=== PATIENT | male | born 1965 | race Two or more races ===

== ENCOUNTER 2023-04-07 15:52 | Inpatient (IN) | payer OTHER ==
[~2023-04-07] VITALS: Ht 165.1 cm; Wt 100.7 kg
[~2023-04-07 15:52] MED LIST: CALAZIME TP; CIPR500T5 GT; [UNRECOGNIZED DRUG - OTHER] TP
[2023-04-07 16:28] LABS: BASOPHILS # (AUTO) 0.1 K/uL (0.0-0.2); BASOPHILS % (AUTO) 0.4 % (0.0-2.0); EOSINOPHILS # (AUTO) 0.1 K/uL (0.0-0.7); EOSINOPHILS % (AUTO) 0.7 % (0.0-6.0); HEMATOCRIT 30 % (39-51); HEMOGLOBIN 9.2 g/dL (13.5-17.5); LYMPHOCYTES # (AUTO) 1.8 K/uL (0.8-4.8); LYMPHOCYTES % (AUTO) 11.7 % (20.0-44.0); MEAN CORPUSCULAR HEMOGLOBIN 21 PG (26.0-33.0); MEAN CORPUSCULAR HGB CONC 31 g/dl (31.0-36.0); MEAN CORPUSCULAR VOLUME 68 fL (80-96); MONOCYTES # (AUTO) 1.2 K/uL (0.1-1.30); MONOCYTES % (AUTO) 8.1 % (2.0-12.0); NEUTROPHILS # (AUTO) 11.9 K/uL (1.8-8.9); NEUTROPHILS % (AUTO) 79.1 % (43.0-81.0); PLATELET COUNT (AUTO) 659 K/uL (150-450); RED BLOOD CELL COUNT(AUTO) 4.36 MIL/uL (4.5-6.0); RED CELL DISTRIBUTION WIDTH 29.5 % (11.5-15.0); WHITE BLOOD COUNT (AUTO) 15.1 K/uL (4.3-11.0)
[2023-04-07] MEDS: PANTOPRAZOLE 80 MG in IV NS 0.9% 500 ML IV ONE (16:30)
[2023-04-07] MEDS: ACETAMINOPHEN 650 MG/SUPP.RECT RC ONE (16:30)
[2023-04-07] MEDS: VANCOMYCIN 1 GM in IV D5W 250 ML IV ONE (16:30)
[2023-04-07] MEDS: PANTOPRAZOLE 80 MG in IV NS 0.9% 100 ML IV ONE (16:30)
[2023-04-07 16:40] LABS: ALANINE AMINOTRANSFERASE 31 U/L (12-78); ALBUMIN 2.3 g/dL (3.4-5.0); ALKALINE PHOSPHATASE 105 U/L (46-116); ASPARTATE AMINOTRANSFERASE 24 U/L (15-37); BILIRUBIN,DIRECT 0.1 mg/dL (0.0-0.2); BILIRUBIN,TOTAL 0.5 mg/dL (0.2-1.0); CALCIUM, SERUM 8.9 mg/dL (8.5-10.1); CARBON DIOXIDE 27 mmol/L (21-32); CHLORIDE 102 mmol/L (98-107); CREATININE 1.3 mg/dL (0.6-1.3); GLUCOSE 282 mg/dL (74-106); POTASSIUM 3.5 mmol/L (3.5-5.1); SODIUM SERUM 139 mmol/L (136-145); TOTAL PROTEIN, SERUM 9.4 g/dL (6.4-8.2); UREA NITROGEN, BLOOD 26 mg/dL (7-18)
[2023-04-07 16:53] LABS: INR 1.14 (0.91-1.10); PARTIAL THROMBOPLASTIN TIME 28.1 SEC (24.3-34.3)
[2023-04-07] MEDS: IV NS 0.9% 1,000 ML BAG IV ONE (16:54)
[2023-04-07] MEDS: PIPERACILLIN /TAZOBACTAM 3.375 G in IV D5W 50 ML IV ONE (17:00)
[2023-04-07 17:12] LABS: ANISOCYTOSIS 1+; LYMPHOCYTES % (MANUAL) 16 % (16-48); MONOCYTES % (MANUAL) 4 % (0-11.0); NEUTROPHILS % (MANUAL) 80 (42-76); OVALOCYTES 1+; PLATELET ESTIMATE INCREASED; ROULEAUX 1+
[2023-04-07 17:30] LABS: LACTIC ACID 1.5 mmol/L (0.4-2.0)
[2023-04-07] MEDS ORDERED: ACETAMINOPHEN 650 MG/20.3 ML UDC ONE (17:58)
[2023-04-07] MEDS ORDERED: MAGNESIUM HYDROXIDE 30 ML UDC PO PRN (18:00)
[2023-04-07] MEDS ORDERED: ONDANSETRON HCL/PF 4 MG/2 ML VIAL IVP PRN (18:00)
[2023-04-07] MEDS ORDERED: MAG HYDROX/AL HYDROX/SIMETH 30 ML UDC PO PRN (18:00)
[2023-04-07] MEDS ORDERED: ACETAMINOPHEN 325 MG TABLET PO PRN (18:00)
[2023-04-07] MEDS ORDERED: Z GUARD REMEDY 4 OZ OINT TP PRN (18:00)
[2023-04-07] MEDS ORDERED: ACETAMINOPHEN 650 MG/20 ML UDC- SA PATIENTS-FEVER ONLY GT PRN (18:00)
[2023-04-07 20:40] VITALS: BP 111/84; TEMP 99.1; O2SAT 95
[2023-04-07] MEDS: PANTOPRAZOLE 40 MG VIAL IV SCH (21:00)
[2023-04-07] MEDS: CEFEPIME HCL 2 GM in IV D5W 100 ML IV SCH (22:14)
[2023-04-07 23:11] VITALS: BP 111/84; TEMP 99.1; O2SAT 95
[2023-04-08 00:01] VITALS: BP 132/65; TEMP 99; O2SAT 93
[2023-04-08] MEDS: IV NS 0.9% 1,000 ML IV PRN (03:35)
[2023-04-08] MEDS: VANCOMYCIN 750 MG in IV D5W 250 ML IV SCH (06:14)
[2023-04-08 07:00] VITALS: BP 112/84; TEMP 98.2; O2SAT 95
[2023-04-08 07:49] LABS: BILIRUBIN,DIRECT 0.1 mg/dL (0.0-0.2); CALCIUM, SERUM 8.6 mg/dL (8.5-10.1); MAGNESIUM 1.8 mg/dL (1.8-2.4); POTASSIUM 3.4 mmol/L (3.5-5.1); TOTAL PROTEIN, SERUM 8.5 g/dL (6.4-8.2)
[2023-04-08 08:01] LABS: BASOPHILS # (AUTO) 0.1 K/uL (0.0-0.2); BASOPHILS % (AUTO) 0.5 % (0.0-2.0); EOSINOPHILS # (AUTO) 0.2 K/uL (0.0-0.7); EOSINOPHILS % (AUTO) 1.1 % (0.0-6.0); HEMATOCRIT 27 % (39-51); HEMOGLOBIN 8.2 g/dL (13.5-17.5); LYMPHOCYTES # (AUTO) 1.9 K/uL (0.8-4.8); LYMPHOCYTES % (AUTO) 13.3 % (20.0-44.0); MEAN CORPUSCULAR HEMOGLOBIN 21 PG (26.0-33.0); MEAN CORPUSCULAR HGB CONC 31 g/dl (31.0-36.0); MEAN CORPUSCULAR VOLUME 69 fL (80-96); MONOCYTES # (AUTO) 1.2 K/uL (0.1-1.30); MONOCYTES % (AUTO) 8.1 % (2.0-12.0); NEUTROPHILS # (AUTO) 11.1 K/uL (1.8-8.9); PLATELET COUNT (AUTO) 559 K/uL (150-450); RED BLOOD CELL COUNT(AUTO) 3.87 MIL/uL (4.5-6.0); RED CELL DISTRIBUTION WIDTH 28.6 % (11.5-15.0); WHITE BLOOD COUNT (AUTO) 14.4 K/uL (4.3-11.0)
[2023-04-08 08:05] LABS: BILIRUBIN,TOTAL 0.5 mg/dL (0.2-1.0)
[2023-04-08] MEDS ORDERED: DEXTROSE 50%-WATER 50 ML DISP.SYRIN IV PRN (10:30)
[2023-04-08] MEDS: POTASSIUM CL. PREMIX PERIPHER. 50 ML IV SCH (11:33)
[2023-04-08] MEDS: BLOOD SUGAR DIAGNOSTIC 1 EACH STRIP VI SCH (11:57)
[2023-04-08 12:00] VITALS: BP 129/80; TEMP 98.6; O2SAT 94
[2023-04-08] MEDS: INSULIN REGULAR, HUMAN 100 UNIT/ML 3 ML VIAL SQ PRN (13:51)
[2023-04-08 16:00] VITALS: BP 121/94; TEMP 98.6; O2SAT 96
[2023-04-08] MEDS ORDERED: MAGN400O6 GT (18:03)
[2023-04-08] MEDS ORDERED: INSU100V39 SQ (18:03)
[2023-04-08] MEDS ORDERED: ACET-868 GT (18:03)
[2023-04-08] MEDS ORDERED: GLUCERNA CAL GT (18:03)
[2023-04-08] MEDS ORDERED: CRAN425C6 GT (18:03)
[2023-04-08] MEDS ORDERED: METO25TA6 GT (18:03)
[2023-04-08] MEDS ORDERED: TICA90TA GT (18:03)
[2023-04-08] MEDS ORDERED: Lansoprazole GT (18:03)
[2023-04-08] MEDS ORDERED: AMLO-213 GT (18:03)
[2023-04-08] MEDS ORDERED: ACET-2605 GT ×2 (18:03)
[2023-04-08] MEDS ORDERED: ZINC50TA69 GT (18:03)
[2023-04-08] MEDS ORDERED: CHLO473M5 PO (18:03)
[2023-04-08] MEDS ORDERED: MULT-213 GT (18:03)
[2023-04-08] MEDS ORDERED: CRAN3875 GT (18:03)
[2023-04-08] MEDS ORDERED: IPRA0.2S9 IH (18:03)
[2023-04-08] MEDS ORDERED: ALBU2.5V38 IH (18:03)
[2023-04-08] MEDS ORDERED: ASPI-1169 GT (18:03)
[2023-04-08] MEDS ORDERED: VITS42.53 TP ×2 (18:03)
[2023-04-08] MEDS ORDERED: ASCO-352 GT (18:03)
[2023-04-08] MEDS ORDERED: ALLO300T2 GT (18:03)
[2023-04-08] MEDS ORDERED: ATOR80TA GT (18:03)
[2023-04-08] MEDS ORDERED: ACET325T53 GT (18:03)
[2023-04-08] MEDS ORDERED: DOCU100T2 GT (18:03)
[2023-04-08] MEDS ORDERED: COLC0.6C3 GT (18:03)
[2023-04-08 20:00] VITALS: BP 137/99; TEMP 98.4; O2SAT 96
[2023-04-09 07:22] LABS: BASOPHILS # (AUTO) 0.1 K/uL (0.0-0.2); BASOPHILS % (AUTO) 0.6 % (0.0-2.0); EOSINOPHILS # (AUTO) 0.3 K/uL (0.0-0.7); EOSINOPHILS % (AUTO) 2.6 % (0.0-6.0); HEMATOCRIT 27 % (39-51); HEMOGLOBIN 8.2 g/dL (13.5-17.5); LYMPHOCYTES % (AUTO) 15.3 % (20.0-44.0); MEAN CORPUSCULAR HEMOGLOBIN 21 PG (26.0-33.0); MEAN CORPUSCULAR HGB CONC 30 g/dl (31.0-36.0); MEAN CORPUSCULAR VOLUME 69 fL (80-96); MONOCYTES % (AUTO) 7.6 % (2.0-12.0); NEUTROPHILS # (AUTO) 9.5 K/uL (1.8-8.9); NEUTROPHILS % (AUTO) 73.9 % (43.0-81.0); PLATELET COUNT (AUTO) 555 K/uL (150-450); RED BLOOD CELL COUNT(AUTO) 3.99 MIL/uL (4.5-6.0); RED CELL DISTRIBUTION WIDTH 28.9 % (11.5-15.0); WHITE BLOOD COUNT (AUTO) 12.9 K/uL (4.3-11.0)
[2023-04-09 07:26] LABS: CALCIUM, SERUM 8.5 mg/dL (8.5-10.1); PHOSPHORUS 3.3 mg/dL (2.5-4.9); POTASSIUM 3.1 mmol/L (3.5-5.1)
[2023-04-09 08:00] VITALS: BP 134/97; TEMP 99.1; O2SAT 98
[2023-04-09] MEDS ORDERED: POTASSIUM CL. PREMIX PERIPHER. 50 ML IV SCH (10:00)
[2023-04-09] MEDS: POTASSIUM CL. PREMIX PERIPHER. 50 ML IV SCH (10:38)
[2023-04-09] MEDS ORDERED: ANESTHESIA TRAY IN PYXIS 1 EA TRAY MC ONE (14:22)
[2023-04-09 16:00] VITALS: BP 134/94; TEMP 98.6; O2SAT 98
[2023-04-09 20:00] VITALS: BP 125/96; TEMP 99; O2SAT 96
[2023-04-09] MEDS: GLUCERNA 1.2 1,000 ML BOTTLE GT SCH (20:20)
[2023-04-09] MEDS: *INSULIN REGULAR(HUMULIN R)HUM 100 UNIT/ML VIAL SQ PRN (21:48)
[2023-04-09] MEDS: SENNOSIDES 8.6 MG TABLET GT SCH (23:15)
[2023-04-10 07:13] LABS: CALCIUM, SERUM 8.4 mg/dL (8.5-10.1); CREATININE 0.9 mg/dL (0.6-1.3); POTASSIUM 3.2 mmol/L (3.5-5.1)
[2023-04-10] MEDS: DOCUSATE SODIUM LIQ 100 MG/10 ML UDC GT SCH (09:28)
[2023-04-10] MEDS: POTASSIUM CHLORIDE 20 MEQ POWDER PACKET PO ONE (09:30)
[2023-04-10 09:54] VITALS: BP 127/83; TEMP 99.3; O2SAT 98
[2023-04-10 10:41] LABS: BASOPHILS # (AUTO) 0.1 K/uL (0.0-0.2); BASOPHILS % (AUTO) 0.6 % (0.0-2.0); EOSINOPHILS # (AUTO) 0.3 K/uL (0.0-0.7); EOSINOPHILS % (AUTO) 2.6 % (0.0-6.0); HEMATOCRIT 28 % (39-51); HEMOGLOBIN 8.5 g/dL (13.5-17.5); LYMPHOCYTES # (AUTO) 1.4 K/uL (0.8-4.8); LYMPHOCYTES % (AUTO) 11.5 % (20.0-44.0); MEAN CORPUSCULAR HEMOGLOBIN 21 PG (26.0-33.0); MEAN CORPUSCULAR HGB CONC 30 g/dl (31.0-36.0); MEAN CORPUSCULAR VOLUME 69 fL (80-96); MONOCYTES # (AUTO) 0.7 K/uL (0.1-1.30); MONOCYTES % (AUTO) 5.7 % (2.0-12.0); NEUTROPHILS # (AUTO) 9.8 K/uL (1.8-8.9); NEUTROPHILS % (AUTO) 79.6 % (43.0-81.0); PLATELET COUNT (AUTO) 516 K/uL (150-450); RED BLOOD CELL COUNT(AUTO) 4.12 MIL/uL (4.5-6.0); RED CELL DISTRIBUTION WIDTH 28.5 % (11.5-15.0); WHITE BLOOD COUNT (AUTO) 12.4 K/uL (4.3-11.0)
[2023-04-10 16:00] VITALS: BP 131/83; TEMP 101.7; O2SAT 96
[2023-04-10] MEDS: ACETAMINOPHEN 650 MG/20.3 ML UDC GT PRN (16:20)
[2023-04-10 17:25] VITALS: TEMP 100.4
[2023-04-10 19:41] LABS: APPEARANCE,URINE CLEAR (CLEAR); BILIRUBIN,URINE NEGATIVE (NEGATIVE); BLOOD, URINE NEGATIVE Ery/uL (NEGATIVE); COLOR,URINE YELLOW (YELLOW); KETONES,URINE TRACE mg/dL (NEGATIVE); LEUKOCYTE ESTERASE ,URINE NEGATIVE (NEGATIVE); NITRITE, URINE NEGATIVE (NEGATIVE); PH,URINE 5.5 (5.0-8.0); PROTEIN,URINE TRACE mg/dl (NEGATIVE); UGLUCOSE 1+ mg/dL (NEGATIVE); UROBILINOGEN,URINE 0.2 EU/dL (0.2)
[2023-04-10 20:00] VITALS: BP 117/77; TEMP 99.1; O2SAT 97
[2023-04-10 20:09] LABS: ADD URINE CULTURE YES; BACTERIA,URINE 2+ /HPF (None Seen); RBC,URINE 0-2 /HPF (0-2); WBC,URINE NONE SEEN /HPF (0-3)
[2023-04-10 20:10] LABS: CALCIUM OXALATE CRYSTALS,UR Few /HPF (None Seen); MUCUS,URINE Few /LPF (None Seen)
[2023-04-10] MEDS: PANTOPRAZOLE 40 MG/PACK PACK GT SCH (21:30)
[2023-04-10 21:55] VITALS: BP 117/77; TEMP 99.1; O2SAT 97
[2023-04-11 04:12] VITALS: BP 120/73; TEMP 98.6; O2SAT 98
[2023-04-11 07:00] VITALS: BP 153/99; TEMP 99; O2SAT 93
[2023-04-11 11:06] LABS: CALCIUM, SERUM 8.3 mg/dL (8.5-10.1); CREATININE 0.8 mg/dL (0.6-1.3); POTASSIUM 3.3 mmol/L (3.5-5.1)
[2023-04-11 11:23] LABS: BASOPHILS # (AUTO) 0.2 K/uL (0.0-0.2); BASOPHILS % (AUTO) 0.9 % (0.0-2.0); EOSINOPHILS # (AUTO) 0.3 K/uL (0.0-0.7); EOSINOPHILS % (AUTO) 1.7 % (0.0-6.0); HEMATOCRIT 27 % (39-51); HEMOGLOBIN 8.5 g/dL (13.5-17.5); LYMPHOCYTES # (AUTO) 1.8 K/uL (0.8-4.8); LYMPHOCYTES % (AUTO) 8.5 % (20.0-44.0); MEAN CORPUSCULAR HEMOGLOBIN 21 PG (26.0-33.0); MEAN CORPUSCULAR HGB CONC 31 g/dl (31.0-36.0); MEAN CORPUSCULAR VOLUME 68 fL (80-96); MONOCYTES # (AUTO) 1.1 K/uL (0.1-1.30); MONOCYTES % (AUTO) 5.2 % (2.0-12.0); NEUTROPHILS # (AUTO) 17.2 K/uL (1.8-8.9); NEUTROPHILS % (AUTO) 83.7 % (43.0-81.0); PLATELET COUNT (AUTO) 501 K/uL (150-450); RED BLOOD CELL COUNT(AUTO) 3.97 MIL/uL (4.5-6.0); RED CELL DISTRIBUTION WIDTH 29.1 % (11.5-15.0); WHITE BLOOD COUNT (AUTO) 20.6 K/uL (4.3-11.0)
[2023-04-11 16:00] VITALS: BP 144/81; TEMP 100.2; O2SAT 97
[2023-04-11] MEDS: METRONIDAZOLE 500MG/ NS 100ML 500 MG in PREMIX 1 EA IV SCH (18:25)
[2023-04-11 20:00] VITALS: BP 131/86; TEMP 98.4; O2SAT 97
[2023-04-12] VITALS (8 sets, daily range): BP systolic 80–165; BP diastolic 50–87; TEMP 99–100.4; O2SAT 94–98
[2023-04-12 06:57] LABS: CALCIUM, SERUM 8.3 mg/dL (8.5-10.1); CREATININE 0.8 mg/dL (0.6-1.3); POTASSIUM 3.1 mmol/L (3.5-5.1)
[2023-04-12 09:23] LABS: CALCIUM, SERUM 8.4 mg/dL (8.5-10.1); CREATININE 0.9 mg/dL (0.6-1.3)
[2023-04-12 09:24] LABS: BASOPHILS % (AUTO) 0.2 % (0.0-2.0); EOSINOPHILS % (AUTO) 0.3 % (0.0-6.0); HEMATOCRIT 30 % (39-51); HEMOGLOBIN 9.1 g/dL (13.5-17.5); LYMPHOCYTES # (AUTO) 1.4 K/uL (0.8-4.8); MEAN CORPUSCULAR HEMOGLOBIN 21 PG (26.0-33.0); MEAN CORPUSCULAR HGB CONC 31 g/dl (31.0-36.0); MEAN CORPUSCULAR VOLUME 68 fL (80-96); MONOCYTES # (AUTO) 1.3 K/uL (0.1-1.30); MONOCYTES % (AUTO) 6.6 % (2.0-12.0); NEUTROPHILS % (AUTO) 85.9 % (43.0-81.0); PLATELET COUNT (AUTO) 484 K/uL (150-450); RED BLOOD CELL COUNT(AUTO) 4.35 MIL/uL (4.5-6.0); RED CELL DISTRIBUTION WIDTH 28.5 % (11.5-15.0); WHITE BLOOD COUNT (AUTO) 19.8 K/uL (4.3-11.0)
[2023-04-12] MEDS: POTASSIUM CHLORIDE 20 MEQ POWDER PACKET GT ONE (09:35)
[2023-04-12] MEDS: GLUCERNA 1.2 1,000 ML BOTTLE GT SCH (10:35)
[2023-04-12 13:23] LABS: LACTIC ACID 2.2 mmol/L (0.4-2.0)
[2023-04-12 16:47] LABS: BILIRUBIN,DIRECT 0.2 mg/dL (0.0-0.2); BILIRUBIN,TOTAL 0.6 mg/dL (0.2-1.0)
[2023-04-12 16:51] LABS: LACTIC ACID REFLEX 1.5 mmol/L (0.4-1.9)
[2023-04-12] MEDS ORDERED: IV NS 0.9% 1,000 ML IV PRN (17:46)
[2023-04-12] MEDS: VANCOMYCIN 1 GM in IV D5W 250ml IV SCH (18:59)
[2023-04-13 07:02] LABS: CALCIUM, SERUM 8.4 mg/dL (8.5-10.1); CREATININE 0.9 mg/dL (0.6-1.3); POTASSIUM 3.2 mmol/L (3.5-5.1)
[2023-04-13 08:00] VITALS: BP 130/63; TEMP 100.4; O2SAT 99
[2023-04-13] MEDS: POTASSIUM CHLORIDE 20 MEQ POWDER PACKET NG SCH (10:39)
[2023-04-13] MEDS ORDERED: BISACODYL SUPP (10 MG) 10 MG/SUPP.RECT SUPP.RECT RC ONE (17:30)
[2023-04-13 20:00] VITALS: BP 125/93; TEMP 99.7; O2SAT 98
[2023-04-14 06:10] LABS: BASOPHILS % (AUTO) 0.2 % (0.0-2.0); EOSINOPHILS # (AUTO) 0.1 K/uL (0.0-0.7); EOSINOPHILS % (AUTO) 0.6 % (0.0-6.0); HEMATOCRIT 27 % (39-51); HEMOGLOBIN 8.6 g/dL (13.5-17.5); LYMPHOCYTES # (AUTO) 2.1 K/uL (0.8-4.8); LYMPHOCYTES % (AUTO) 12.4 % (20.0-44.0); MEAN CORPUSCULAR HEMOGLOBIN 21 PG (26.0-33.0); MEAN CORPUSCULAR HGB CONC 32 g/dl (31.0-36.0); MEAN CORPUSCULAR VOLUME 67 fL (80-96); MONOCYTES # (AUTO) 1.6 K/uL (0.1-1.30); MONOCYTES % (AUTO) 9.1 % (2.0-12.0); NEUTROPHILS # (AUTO) 13.5 K/uL (1.8-8.9); NEUTROPHILS % (AUTO) 77.7 % (43.0-81.0); PLATELET COUNT (AUTO) 509 K/uL (150-450); RED BLOOD CELL COUNT(AUTO) 4.07 MIL/uL (4.5-6.0); RED CELL DISTRIBUTION WIDTH 28.9 % (11.5-15.0); WHITE BLOOD COUNT (AUTO) 17.3 K/uL (4.3-11.0)
[2023-04-14 06:36] LABS: CALCIUM, SERUM 8.9 mg/dL (8.5-10.1); CREATININE 1.1 mg/dL (0.6-1.3); MAGNESIUM 2.2 mg/dL (1.8-2.4); PHOSPHORUS 2.9 mg/dL (2.5-4.9); POTASSIUM 3.7 mmol/L (3.5-5.1)
[2023-04-14 08:00] VITALS: BP 129/78; TEMP 101.2; O2SAT 98
[2023-04-14 11:48] LABS: IRON, SERUM 12 ug/dl (50-175); TOTAL IRON BINDING CAPACITY 175 ug/dl (250-450)
[2023-04-14 14:46] LABS: FERRITIN 87 ng/mL (8-388)
[2023-04-14] MEDS: SOD FERRIC GLUC 125 MG in IV NS 0.9% 100 ML IV SCH (14:51)
[2023-04-14 16:00] VITALS: BP 142/99; TEMP 99; O2SAT 96
[2023-04-14 20:00] VITALS: BP 139/95; TEMP 99.1; O2SAT 100
[2023-04-14 20:11] LABS: APPEARANCE,URINE CLEAR (CLEAR); BILIRUBIN,URINE NEGATIVE (NEGATIVE); BLOOD, URINE 1+ Ery/uL (NEGATIVE); COLOR,URINE YELLOW (YELLOW); KETONES,URINE NEGATIVE (NEGATIVE); LEUKOCYTE ESTERASE ,URINE NEGATIVE (NEGATIVE); NITRITE, URINE NEGATIVE (NEGATIVE); PROTEIN,URINE TRACE mg/dl (NEGATIVE); UGLUCOSE 2+ mg/dL (NEGATIVE); UROBILINOGEN,URINE 0.2 EU/dL (0.2)
[2023-04-14 20:26] LABS: ADD URINE CULTURE NO; BACTERIA,URINE 1+ /HPF (None Seen); WBC,URINE 0-2 /HPF (0-3)
[2023-04-14 20:27] LABS: MUCUS,URINE Few /LPF (None Seen); SQUAMOUS EPITHELIAL CELL,UR None Seen /HPF (None Seen)
[2023-04-15 08:00] VITALS: BP 137/85; TEMP 98.4; O2SAT 95
[2023-04-15 08:41] LABS: BASOPHILS % (AUTO) 0.2 % (0.0-2.0); EOSINOPHILS # (AUTO) 0.1 K/uL (0.0-0.7); EOSINOPHILS % (AUTO) 0.4 % (0.0-6.0); HEMATOCRIT 28 % (39-51); HEMOGLOBIN 8.5 g/dL (13.5-17.5); LYMPHOCYTES # (AUTO) 1.6 K/uL (0.8-4.8); LYMPHOCYTES % (AUTO) 9.9 % (20.0-44.0); MEAN CORPUSCULAR HEMOGLOBIN 21 PG (26.0-33.0); MEAN CORPUSCULAR HGB CONC 31 g/dl (31.0-36.0); MEAN CORPUSCULAR VOLUME 67 fL (80-96); MONOCYTES # (AUTO) 1.3 K/uL (0.1-1.30); MONOCYTES % (AUTO) 8.3 % (2.0-12.0); NEUTROPHILS # (AUTO) 13.3 K/uL (1.8-8.9); NEUTROPHILS % (AUTO) 81.2 % (43.0-81.0); PLATELET COUNT (AUTO) 550 K/uL (150-450); RED BLOOD CELL COUNT(AUTO) 4.11 MIL/uL (4.5-6.0); RED CELL DISTRIBUTION WIDTH 28.9 % (11.5-15.0); WHITE BLOOD COUNT (AUTO) 16.3 K/uL (4.3-11.0)
[2023-04-15 08:59] LABS: CALCIUM, SERUM 8.3 mg/dL (8.5-10.1); CREATININE 0.9 mg/dL (0.6-1.3); PHOSPHORUS 3.1 mg/dL (2.5-4.9); POTASSIUM 4.2 mmol/L (3.5-5.1)
[2023-04-15 10:14] LABS: ANISOCYTOSIS 2+; HYPOCHROMASIA 1+; LYMPHOCYTES % (MANUAL) 7 % (16-48); MONOCYTES % (MANUAL) 6 % (0-11.0); NEUTROPHILS % (MANUAL) 87 (42-76); PLATELET ESTIMATE INCREASED
[2023-04-15 10:17] LABS: OVALOCYTES 1+
[2023-04-15] MEDS ORDERED: CT SWABBABLE VALVE TRANS SET 1 EA INFUS.SET MC ONE (12:13)
[2023-04-15] MEDS ORDERED: IOHEXOL-300 100 ML VIAL IV ONE (12:13)
[2023-04-15] MEDS ORDERED: IV NS 0.9% 250 ML IV ONE (12:13)
[2023-04-15 16:00] VITALS: BP 123/85; TEMP 99.3; O2SAT 96
[2023-04-15] MEDS: METRONIDAZOLE 500 MG TABLET PO SCH (18:48)
[2023-04-15 20:00] VITALS: BP_SYST 116; BP_SYST 119; BP_DIAS 77; TEMP 98.4; O2SAT 97
[2023-04-15 22:06] LABS: HIV-1 p24 ANTIGEN NON REACTIVE (NONREACTIVE); HIV-1/2 ANTIBODY NON REACTIVE (NONREACTIVE)
[2023-04-16 07:17] LABS: CALCIUM, SERUM 8.7 mg/dL (8.5-10.1); CREATININE 0.9 mg/dL (0.6-1.3); MAGNESIUM 2.2 mg/dL (1.8-2.4); PHOSPHORUS 3.2 mg/dL (2.5-4.9); POTASSIUM 3.6 mmol/L (3.5-5.1)
[2023-04-16 07:28] LABS: BASOPHILS # (AUTO) 0.1 K/uL (0.0-0.2); BASOPHILS % (AUTO) 0.4 % (0.0-2.0); EOSINOPHILS # (AUTO) 0.2 K/uL (0.0-0.7); HEMATOCRIT 26 % (39-51); HEMOGLOBIN 8.2 g/dL (13.5-17.5); LYMPHOCYTES # (AUTO) 1.9 K/uL (0.8-4.8); LYMPHOCYTES % (AUTO) 10.8 % (20.0-44.0); MEAN CORPUSCULAR HEMOGLOBIN 21 PG (26.0-33.0); MEAN CORPUSCULAR HGB CONC 31 g/dl (31.0-36.0); MEAN CORPUSCULAR VOLUME 67 fL (80-96); MONOCYTES # (AUTO) 1.5 K/uL (0.1-1.30); MONOCYTES % (AUTO) 8.4 % (2.0-12.0); NEUTROPHILS % (AUTO) 79.4 % (43.0-81.0); PLATELET COUNT (AUTO) 532 K/uL (150-450); RED BLOOD CELL COUNT(AUTO) 3.95 MIL/uL (4.5-6.0); RED CELL DISTRIBUTION WIDTH 28.6 % (11.5-15.0); WHITE BLOOD COUNT (AUTO) 17.6 K/uL (4.3-11.0)
[2023-04-16 08:00] VITALS: BP 146/90; TEMP 97.7; O2SAT 97
[2023-04-16 10:00] VITALS: BP 146/90; TEMP 97.7; O2SAT 97
[2023-04-16 11:34] LABS: EOSINOPHILS % (MANUAL) 2 % (0-4); LYMPHOCYTES % (MANUAL) 10 % (16-48); MONOCYTES % (MANUAL) 4 % (0-11.0); NEUTROPHILS % (MANUAL) 84 (42-76)
[2023-04-16 11:35] LABS: ANISOCYTOSIS 1+; HYPOCHROMASIA 1+; OVALOCYTES 1+; PLATELET ESTIMATE ADEQUATE
[2023-04-16 16:00] VITALS: BP 125/94; TEMP 98.8; O2SAT 97
[2023-04-16 20:00] VITALS: BP 130/85; TEMP 98.4; O2SAT 95
[2023-04-17 07:21] LABS: BASOPHILS % (AUTO) 0.3 % (0.0-2.0); EOSINOPHILS # (AUTO) 0.2 K/uL (0.0-0.7); EOSINOPHILS % (AUTO) 1.6 % (0.0-6.0); HEMATOCRIT 30 % (39-51); HEMOGLOBIN 9.2 g/dL (13.5-17.5); LYMPHOCYTES # (AUTO) 1.9 K/uL (0.8-4.8); LYMPHOCYTES % (AUTO) 13.2 % (20.0-44.0); MEAN CORPUSCULAR HEMOGLOBIN 21 PG (26.0-33.0); MEAN CORPUSCULAR HGB CONC 30 g/dl (31.0-36.0); MEAN CORPUSCULAR VOLUME 69 fL (80-96); MONOCYTES % (AUTO) 7.3 % (2.0-12.0); NEUTROPHILS % (AUTO) 77.6 % (43.0-81.0); PLATELET COUNT (AUTO) 595 K/uL (150-450); RED CELL DISTRIBUTION WIDTH 29.3 % (11.5-15.0); WHITE BLOOD COUNT (AUTO) 14.1 K/uL (4.3-11.0)
[2023-04-17 07:44] LABS: CALCIUM, SERUM 8.8 mg/dL (8.5-10.1); CREATININE 0.9 mg/dL (0.6-1.3); MAGNESIUM 2.3 mg/dL (1.8-2.4); PHOSPHORUS 3.7 mg/dL (2.5-4.9); POTASSIUM 3.5 mmol/L (3.5-5.1)
[2023-04-17 08:00] VITALS: BP 128/92; TEMP 97.9; O2SAT 99
[2023-04-17] MEDS ORDERED: METRONIDAZOLE 500 MG TABLET GT SCH (10:22)
[2023-04-17] MEDS ORDERED: MAG HYDROX/AL HYDROX/SIMETH 30 ML UDC GT PRN (10:22)
[2023-04-17] MEDS ORDERED: MAGNESIUM HYDROXIDE 30 ML UDC GT PRN (10:22)
[2023-04-17] MEDS ORDERED: LOPERAMIDE HCL (2 MG CAP) 2 MG CAPSULE PO PRN (13:00)
[2023-04-17] MEDS: VITAL AF 1.2 1,000 ML BOTTLE GT PRN (13:08)
[2023-04-17 15:51] VITALS: BP 116/94; TEMP 98.4; O2SAT 96
[2023-04-17] MEDS: METRONIDAZOLE 500 MG TABLET GT SCH (17:10)
[2023-04-17 20:00] VITALS: BP 132/101; TEMP 98.2; O2SAT 100
[2023-04-17 21:23] VITALS: BP 132/101; TEMP 98.2; O2SAT 100
[2023-04-18 07:09] LABS: BASOPHILS % (AUTO) 0.3 % (0.0-2.0); EOSINOPHILS # (AUTO) 0.1 K/uL (0.0-0.7); EOSINOPHILS % (AUTO) 0.8 % (0.0-6.0); HEMATOCRIT 32 % (39-51); HEMOGLOBIN 9.6 g/dL (13.5-17.5); LYMPHOCYTES # (AUTO) 1.4 K/uL (0.8-4.8); LYMPHOCYTES % (AUTO) 11.9 % (20.0-44.0); MEAN CORPUSCULAR HEMOGLOBIN 21 PG (26.0-33.0); MEAN CORPUSCULAR HGB CONC 30 g/dl (31.0-36.0); MEAN CORPUSCULAR VOLUME 71 fL (80-96); MONOCYTES # (AUTO) 0.9 K/uL (0.1-1.30); NEUTROPHILS # (AUTO) 9.1 K/uL (1.8-8.9); PLATELET COUNT (AUTO) 619 K/uL (150-450); RED BLOOD CELL COUNT(AUTO) 4.51 MIL/uL (4.5-6.0); RED CELL DISTRIBUTION WIDTH 29.4 % (11.5-15.0); WHITE BLOOD COUNT (AUTO) 11.6 K/uL (4.3-11.0)
[2023-04-18 07:26] LABS: CALCIUM, SERUM 8.7 mg/dL (8.5-10.1); CREATININE 0.8 mg/dL (0.6-1.3); POTASSIUM 3.7 mmol/L (3.5-5.1)
[2023-04-18 08:00] VITALS: BP 138/105; TEMP 98.1; O2SAT 100
[2023-04-18] MEDS ORDERED: METR500T GT (11:28)
[2023-04-18] MEDS ORDERED: NUT.237L65 GT (11:28)
[2023-04-18] MEDS ORDERED: ACET650S26 GT (11:28)
[2023-04-18] MEDS ORDERED: PANT40SU2 GT (11:28)
[2023-04-18] MEDS ORDERED: CEFE2PIG2 IV (11:28)
[2023-04-18 12:53] LABS: ANISOCYTOSIS 1+; BAND % (MANUAL) 2 % (0.0-5.0); BASOPHILS % (MANUAL) 0 % (0.0-2.0); EOSINOPHILS % (MANUAL) 0 % (0-4); HYPOCHROMASIA 1+; LYMPHOCYTES % (MANUAL) 13 % (16-48); MONOCYTES % (MANUAL) 9 % (0-11.0); NEUTROPHILS % (MANUAL) 76 (42-76); PLATELET ESTIMATE INCREASED
[2023-04-18 16:00] VITALS: BP 106/75; TEMP 97.7; O2SAT 95
[2023-04-18 16:44] VITALS: BP 149/71; TEMP 98.2; O2SAT 95
== END 2023-04-18 19:20 | DRG 871 ==
LOC: ER 16:19 → TELE 19:36 → MED 04-08 11:53
PROVIDERS: ADMIT Internal Medicine; ATTEND Nurse Practitioner Acute Care
PROC: 0DB68ZX Excision of Stomach, Via Natural or Artificial Opening Endoscopic, Diagnostic (ICD-10-PCS; principal; 2023-04-09)
PROC: 05HB33Z Insertion of Infusion Device into Right Basilic Vein, Percutaneous Approach (ICD-10-PCS; 2023-04-15)
PROC: B54MZZA Ultrasonography of Right Upper Extremity Veins, Guidance (ICD-10-PCS; 2023-04-15)
DX: A41.9 Sepsis, unspecified organism (principal); G93.41 Metabolic encephalopathy; K20.91 Esophagitis, unspecified with bleeding; N17.0 Acute kidney failure with tubular necrosis; J69.0 Pneumonitis due to inhalation of food and vomit; K29.71 Gastritis, unspecified, with bleeding; E44.0 Moderate protein-calorie malnutrition; E11.9 Type 2 diabetes mellitus without complications; I10 Essential (primary) hypertension; Z20.822 Contact with and (suspected) exposure to COVID-19; D50.9 Iron deficiency anemia, unspecified; D75.839 Thrombocytosis, unspecified; K52.9 Noninfective gastroenteritis and colitis, unspecified; K80.20 Calculus of gallbladder without cholecystitis without obstruction; R13.10 Dysphagia, unspecified; Z86.73 Personal history of transient ischemic attack (TIA), and cerebral infarction without residual deficits; Z93.1 Gastrostomy status; Z68.36 Body mass index [BMI] 36.0-36.9, adult; L98.8 Other specified disorders of the skin and subcutaneous tissue; Z79.4 Long term (current) use of insulin
CPT/HCPCS: 36415; 71045-TC; 71260-TC; 80048-TC; 80076-TC; 80202-TC; 81001; 82247-TC; 82248-TC; 82728-TC; 82962-TC; 83540-TC; 83605-TC; 83735-TC; 84100-TC; 84484-TC; 85025-TC; 85730-TC; 86850-TC; 87040-TC; 87086-TC; 87806; 88305-TC; 88313-TC; 88342; A4216; A4223; A6253; C9113; G0378; J0692; J1815; J2543; J2704; J2916; J3370; J3371; J3480; J7030; J7040; J7050; J7060; Q9967

== ENCOUNTER 2023-04-26 13:38 | Inpatient (IN) | payer OTHER ==
[~2023-04-26] VITALS: Ht 172.7 cm; Wt 100.2 kg
[~2023-04-26 13:38] MED LIST changes: +ACET-2605 GT; +ACET-868 GT; +ACET325T53 GT; +ACET650S26 GT; +ALBU2.5V38 IH; +ALLO300T2 GT; +AMLO-213 GT; +ASCO-352 GT; +ASPI-1169 GT; +ATOR80TA GT; +CEFE2PIG2 IV; +CHLO473M5 MM; -CIPR500T5 GT; +COLC0.6C3 GT; +CRAN3875 GT; +CRAN425C6 GT; +DOCU100T2 GT; +GLUCERNA CAL GT; +INSU100V39 SQ; +IPRA0.2S9 IH; +Lansoprazole GT; +MAGN400O6 GT; +METO25TA6 GT; +METR500T GT; +MULT-213 GT; +NUT.237L65 GT; +PANT40SU2 GT; +TICA90TA GT; +VITS42.53 TP; +ZINC50TA69 GT
[2023-04-26] MEDS: CEFEPIME 1 GM in IV D5W 50 ML IV ONE (14:00)
[2023-04-26] MEDS ORDERED: ACETAMINOPHEN 325 MG TABLET ONE (14:15)
[2023-04-26] MEDS: ACETAMINOPHEN 650 MG/SUPP.RECT RC ONE (14:23)
[2023-04-26] MEDS: ACETAMINOPHEN 650 MG/20 ML UDC- SA PATIENTS-FEVER ONLY GT PRN (14:26)
[2023-04-26] MEDS: IV NS 0.9% 1,000 ML BAG IV ONE ×2 (14:27)
[2023-04-26 14:51] LABS: BASOPHILS # (AUTO) 0.1 K/uL (0.0-0.2); BASOPHILS % (AUTO) 0.4 % (0.0-2.0); HEMATOCRIT 39 % (39-51); LYMPHOCYTES # (AUTO) 1.2 K/uL (0.8-4.8); MEAN CORPUSCULAR HEMOGLOBIN 22 PG (26.0-33.0); MEAN CORPUSCULAR HGB CONC 29 g/dl (31.0-36.0); MEAN CORPUSCULAR VOLUME 76 fL (80-96); MONOCYTES # (AUTO) 0.8 K/uL (0.1-1.30); MONOCYTES % (AUTO) 5.2 % (2.0-12.0); NEUTROPHILS # (AUTO) 12.6 K/uL (1.8-8.9); NEUTROPHILS % (AUTO) 86.4 % (43.0-81.0); PLATELET COUNT (AUTO) 494 K/uL (150-450); RED CELL DISTRIBUTION WIDTH 33.6 % (11.5-15.0); WHITE BLOOD COUNT (AUTO) 14.6 K/uL (4.3-11.0)
[2023-04-26 14:57] LABS: APPEARANCE,URINE Clear (CLEAR); BILIRUBIN,URINE Negative (NEGATIVE); BLOOD, URINE Large Ery/uL (NEGATIVE); COLOR,URINE YELLOW (YELLOW); KETONES,URINE 15 mg/dL (NEGATIVE); LEUKOCYTE ESTERASE ,URINE Small (NEGATIVE); NITRITE, URINE Negative (NEGATIVE); PROTEIN,URINE 100 mg/dl (NEGATIVE); UGLUCOSE Negative (NEGATIVE); UROBILINOGEN,URINE 0.2 EU/dL (0.2)
[2023-04-26] MEDS ORDERED: AMIN30LI66 GT (14:57)
[2023-04-26] MEDS ORDERED: MENT4PAS TP (14:57)
[2023-04-26] MEDS ORDERED: [UNRECOGNIZED DRUG - OTHER] GT (14:57)
[2023-04-26] MEDS ORDERED: PANT40SU2 GT (14:57)
[2023-04-26] MEDS ORDERED: NUT.237L30 GT (14:57)
[2023-04-26] MEDS: VANCOMYCIN 1 GM in IV D5W 250 ML IV ONE (15:00)
[2023-04-26 15:05] LABS: ALANINE AMINOTRANSFERASE 22 U/L (12-78); ALKALINE PHOSPHATASE 72 U/L (46-116); ASPARTATE AMINOTRANSFERASE 20 U/L (15-37); BILIRUBIN,TOTAL 0.3 mg/dL (0.2-1.0); CALCIUM, SERUM 8.2 mg/dL (8.5-10.1); CARBON DIOXIDE 29 mmol/L (21-32); CHLORIDE 116 mmol/L (98-107); CREATININE 2.4 mg/dL (0.6-1.3); POTASSIUM 3.5 mmol/L (3.5-5.1); SODIUM SERUM 155 mmol/L (136-145); TOTAL PROTEIN, SERUM 8.6 g/dL (6.4-8.2); UREA NITROGEN, BLOOD 69 mg/dL (7-18)
[2023-04-26 15:08] LABS: GLUCOSE 418 mg/dL (74-106)
[2023-04-26 15:24] LABS: ADD URINE CULTURE YES; BACTERIA,URINE 1+ /HPF (None Seen); RBC,URINE 21-50 /HPF (0-2); SQUAMOUS EPITHELIAL CELL,UR None Seen /HPF (None Seen); YEAST,URINE Moderate /HPF (None Seen)
[2023-04-26 15:25] LABS: MUCUS,URINE Moderate /LPF (None Seen)
[2023-04-26 16:43] LABS: ACETONE, SERUM NEGATIVE (NEGATIVE)
[2023-04-26] MEDS ORDERED: GLUCERNA 1.2 1,000 ML BOTTLE NG PRN (17:30)
[2023-04-26] MEDS ORDERED: MAG HYDROX/AL HYDROX/SIMETH 30 ML UDC PO PRN (17:30)
[2023-04-26] MEDS ORDERED: ONDANSETRON HCL/PF 4 MG/2 ML VIAL IVP PRN (17:30)
[2023-04-26] MEDS ORDERED: IPRATROPIUM NEB FS 0.5 MG/2.5 ML AMPUL.NEB IH PRN (17:30)
[2023-04-26] MEDS ORDERED: Z GUARD REMEDY 4 OZ OINT TP PRN (17:30)
[2023-04-26] MEDS ORDERED: DEXTROSE 50%-WATER 50 ML DISP.SYRIN IV PRN (17:30)
[2023-04-26] MEDS ORDERED: MAGNESIUM HYDROXIDE 30 ML UDC PO PRN (17:30)
[2023-04-26] MEDS ORDERED: IV 1/2NS 1000 ML 1,000 ML IV PRN (17:30)
[2023-04-26 17:34] LABS: BILIRUBIN,DIRECT 0.1 mg/dL (0.0-0.2)
[2023-04-26 17:43] LABS: LACTIC ACID REFLEX 2.1 mmol/L (0.4-1.9)
[2023-04-26] MEDS ORDERED: MAG HYDROX/AL HYDROX/SIMETH 30 ML UDC GT PRN (17:54)
[2023-04-26] MEDS ORDERED: MAGNESIUM HYDROXIDE 30 ML UDC GT PRN (17:54)
[2023-04-26] MEDS: BLOOD SUGAR DIAGNOSTIC 1 EACH STRIP IN SCH (19:00)
[2023-04-26] MEDS: IV 1/2NS 1000 ML 1,000 ML IV PRN (20:47)
[2023-04-26] MEDS: VANCOMYCIN 500 MG in IV D5W 100ml IV ONE (20:48)
[2023-04-26] MEDS: FLUCONAZOLE IN NS 100 MG in PREMIX 1 EA IV SCH (20:48)
[2023-04-26] MEDS ORDERED: CEFEPIME 1 GM VIAL IM SCH (21:00)
[2023-04-26 21:12] VITALS: BP 117/82; TEMP 100.4
[2023-04-26 21:33] LABS: CALCIUM, SERUM 8.1 mg/dL (8.5-10.1); CREATININE 1.5 mg/dL (0.6-1.3); POTASSIUM 3.5 mmol/L (3.5-5.1)
[2023-04-26] MEDS: CEFEPIME 1 GM in IV D5W 50 ML IV SCH (21:55)
[2023-04-26] MEDS: PANTOPRAZOLE 40 MG/PACK PACK GT SCH (21:55)
[2023-04-26] MEDS: TICAGRELOR 90 MG TABLET PO SCH (21:56)
[2023-04-26] MEDS: ACETAMINOPHEN 650 MG/20.3 ML UDC GT PRN (22:13)
[2023-04-26] MEDS: INSULIN REGULAR, HUMAN 100 UNIT/ML 3 ML VIAL SQ PRN (23:59)
[2023-04-27] VITALS: BP 124/53; TEMP 100; O2SAT 99
[2023-04-27 04:00] VITALS: BP 108/79; TEMP 98.7; O2SAT 99
[2023-04-27 07:05] LABS: BASOPHILS % (AUTO) 0.3 % (0.0-2.0); EOSINOPHILS # (AUTO) 0.1 K/uL (0.0-0.7); EOSINOPHILS % (AUTO) 0.5 % (0.0-6.0); HEMATOCRIT 33 % (39-51); HEMOGLOBIN 9.6 g/dL (13.5-17.5); LYMPHOCYTES # (AUTO) 1.4 K/uL (0.8-4.8); LYMPHOCYTES % (AUTO) 10.9 % (20.0-44.0); MEAN CORPUSCULAR HEMOGLOBIN 22 PG (26.0-33.0); MEAN CORPUSCULAR HGB CONC 30 g/dl (31.0-36.0); MEAN CORPUSCULAR VOLUME 76 fL (80-96); MONOCYTES # (AUTO) 0.6 K/uL (0.1-1.30); MONOCYTES % (AUTO) 4.9 % (2.0-12.0); NEUTROPHILS # (AUTO) 10.4 K/uL (1.8-8.9); NEUTROPHILS % (AUTO) 83.4 % (43.0-81.0); PLATELET COUNT (AUTO) 364 K/uL (150-450); RED BLOOD CELL COUNT(AUTO) 4.29 MIL/uL (4.5-6.0); RED CELL DISTRIBUTION WIDTH 32.7 % (11.5-15.0); WHITE BLOOD COUNT (AUTO) 12.4 K/uL (4.3-11.0)
[2023-04-27 07:08] LABS: ALBUMIN 1.7 g/dL (3.4-5.0); BILIRUBIN,TOTAL 0.5 mg/dL (0.2-1.0); CALCIUM, SERUM 8.3 mg/dL (8.5-10.1); CREATININE 1.3 mg/dL (0.6-1.3); MAGNESIUM 2.5 mg/dL (1.8-2.4); PHOSPHORUS 3.3 mg/dL (2.5-4.9); POTASSIUM 3.4 mmol/L (3.5-5.1); TOTAL PROTEIN, SERUM 7.3 g/dL (6.4-8.2)
[2023-04-27 08:00] VITALS: BP 108/80; TEMP 96.1; O2SAT 99
[2023-04-27] MEDS ORDERED: Medication Not On Formulary EA (Amino AC/Protein Hydr/Whey Pro (Liquacel Liquid Protein GT SCH (09:00)
[2023-04-27] MEDS: DOCUSATE SODIUM LIQ 100 MG/10 ML UDC GT SCH (09:00)
[2023-04-27] MEDS: CHLORHEXIDINE GLUCONATE 15 ML UDC MM SCH (09:00)
[2023-04-27] MEDS ORDERED: Medication Not On Formulary EA (Cranberry Extract (Cranberry) 425 MG) GT SCH (09:00)
[2023-04-27] MEDS ORDERED: Medication Not On Formulary EA (Colchicine 0.6 MG) GT SCH (09:00)
[2023-04-27] MEDS: PROSOURCE / PROSTAT (PYXIS) 30 ML UDC PO SCH (09:00)
[2023-04-27] MEDS ORDERED: Medication Not On Formulary EA (Cran/Vitc/Mannose/Inulin/Brom (Uti-Stat Liquid) 30 ML) GT SCH (09:00)
[2023-04-27] MEDS: ALLOPURINOL 100 MG TABLET GT SCH (09:01)
[2023-04-27] MEDS: ASPIRIN 81 MG TAB.CHEW GT SCH (09:01)
[2023-04-27] MEDS: ASCORBIC ACID 500 MG TABLET GT SCH (09:01)
[2023-04-27] MEDS: MULTIVIT W/MINERALS 1 TAB TABLET GT SCH (09:01)
[2023-04-27] MEDS: ATORVASTATIN 40 MG TABLET GT SCH (09:01)
[2023-04-27] MEDS: METOPROLOL TARTRATE 25 MG TABLET GT SCH (09:02)
[2023-04-27] MEDS: ZINC SULFATE 220 MG CAPSULE GT SCH (09:03)
[2023-04-27] MEDS: AMLODIPINE BESYLATE 10 MG TABLET GT SCH (09:03)
[2023-04-27] MEDS: VANCOMYCIN 1 GM in IV D5W 250ml IV SCH (09:10)
[2023-04-27] MEDS: POTASSIUM CHLORIDE 20 MEQ POWDER PACKET GT ONE (09:11)
[2023-04-27 11:17] LABS: PLATELET ESTIMATE ADEQUATE
[2023-04-27 11:18] LABS: BAND % (MANUAL) 1 % (0.0-5.0); LYMPHOCYTES % (MANUAL) 6 % (16-48); MONOCYTES % (MANUAL) 4 % (0-11.0); NEUTROPHILS % (MANUAL) 89 (42-76)
[2023-04-27 11:19] LABS: ANISOCYTOSIS 2+
[2023-04-27 12:00] VITALS: BP_SYST 118; BP_SYST 95; BP_DIAS 69; BP_DIAS 72; TEMP 98.5; TEMP 99; O2SAT 100; O2SAT 99
[2023-04-27] MEDS: IV D5W 1,000 ML IV PRN (15:09)
[2023-04-27 18:00] VITALS: BP 115/73; TEMP 97.7; O2SAT 100
[2023-04-27] MEDS ORDERED: VANCOMYCIN HCL 1.25 GM in IV D5W 250 ML IV SCH (18:00)
[2023-04-27 20:00] VITALS: BP 120/72; TEMP 97.6; O2SAT 100
[2023-04-27] MEDS: FLUCONAZOLE IN NS 100 MG in PREMIX 1 EA IV SCH (20:46)
[2023-04-28] VITALS: BP 122/73; TEMP 97.8; O2SAT 100
[2023-04-28 04:00] VITALS: BP 124/82; TEMP 97.7; O2SAT 99
[2023-04-28 07:48] LABS: BASOPHILS % (AUTO) 0.2 % (0.0-2.0); EOSINOPHILS # (AUTO) 0.2 K/uL (0.0-0.7); EOSINOPHILS % (AUTO) 2.8 % (0.0-6.0); HEMATOCRIT 31 % (39-51); HEMOGLOBIN 9.1 g/dL (13.5-17.5); LYMPHOCYTES # (AUTO) 0.8 K/uL (0.8-4.8); LYMPHOCYTES % (AUTO) 9.2 % (20.0-44.0); MEAN CORPUSCULAR HEMOGLOBIN 23 PG (26.0-33.0); MEAN CORPUSCULAR HGB CONC 30 g/dl (31.0-36.0); MEAN CORPUSCULAR VOLUME 77 fL (80-96); MONOCYTES # (AUTO) 0.5 K/uL (0.1-1.30); MONOCYTES % (AUTO) 5.4 % (2.0-12.0); NEUTROPHILS # (AUTO) 7.2 K/uL (1.8-8.9); NEUTROPHILS % (AUTO) 82.4 % (43.0-81.0); PLATELET COUNT (AUTO) 301 K/uL (150-450); RED BLOOD CELL COUNT(AUTO) 4.03 MIL/uL (4.5-6.0); RED CELL DISTRIBUTION WIDTH 32.4 % (11.5-15.0); WHITE BLOOD COUNT (AUTO) 8.7 K/uL (4.3-11.0)
[2023-04-28 08:00] VITALS: BP 111/82; TEMP 98.2; O2SAT 100
[2023-04-28 08:07] LABS: ALBUMIN 1.6 g/dL (3.4-5.0); BILIRUBIN,TOTAL 0.5 mg/dL (0.2-1.0); CALCIUM, SERUM 8.3 mg/dL (8.5-10.1); CREATININE 0.9 mg/dL (0.6-1.3); PHOSPHORUS 2.8 mg/dL (2.5-4.9); POTASSIUM 3.5 mmol/L (3.5-5.1); TOTAL PROTEIN, SERUM 6.9 g/dL (6.4-8.2)
[2023-04-28 12:00] VITALS: BP 111/76; TEMP 98; O2SAT 100
[2023-04-28 16:00] VITALS: BP 106/76; TEMP 98.1; O2SAT 99
[2023-04-28] MEDS: GLUCERNA 1.2 1,000 ML BOTTLE NG PRN (16:10)
[2023-04-28 20:00] VITALS: BP 111/76; TEMP 98.4; O2SAT 100
[2023-04-29] VITALS: BP 109/83; TEMP 98.8; O2SAT 100
[2023-04-29 04:00] VITALS: BP 124/85; TEMP 98.1; O2SAT 100
[2023-04-29 07:16] LABS: BASOPHILS % (AUTO) 0.1 % (0.0-2.0); EOSINOPHILS # (AUTO) 0.2 K/uL (0.0-0.7); EOSINOPHILS % (AUTO) 2.3 % (0.0-6.0); HEMATOCRIT 30 % (39-51); HEMOGLOBIN 9.3 g/dL (13.5-17.5); LYMPHOCYTES % (AUTO) 14.5 % (20.0-44.0); MEAN CORPUSCULAR HEMOGLOBIN 23 PG (26.0-33.0); MEAN CORPUSCULAR HGB CONC 31 g/dl (31.0-36.0); MEAN CORPUSCULAR VOLUME 75 fL (80-96); MONOCYTES # (AUTO) 0.5 K/uL (0.1-1.30); NEUTROPHILS # (AUTO) 5.5 K/uL (1.8-8.9); NEUTROPHILS % (AUTO) 76.1 % (43.0-81.0); PLATELET COUNT (AUTO) 260 K/uL (150-450); RED BLOOD CELL COUNT(AUTO) 4.07 MIL/uL (4.5-6.0); RED CELL DISTRIBUTION WIDTH 32.2 % (11.5-15.0); WHITE BLOOD COUNT (AUTO) 7.2 K/uL (4.3-11.0)
[2023-04-29 07:52] LABS: CALCIUM, SERUM 8.1 mg/dL (8.5-10.1); CREATININE 0.8 mg/dL (0.6-1.3); POTASSIUM 3.2 mmol/L (3.5-5.1)
[2023-04-29 08:00] VITALS: BP 120/83; TEMP 99.4; O2SAT 100
[2023-04-29] MEDS: POTASSIUM CHLORIDE 20 MEQ POWDER PACKET NG SCH (09:29)
[2023-04-29 12:00] VITALS: BP 113/83; TEMP 99; O2SAT 100
[2023-04-29 16:00] VITALS: BP 125/85; TEMP 97.9; O2SAT 100
[2023-04-29 20:00] VITALS: BP 123/95; TEMP 97.9; O2SAT 100
[2023-04-29] MEDS: TICAGRELOR 90 MG TABLET GT SCH (21:37)
[2023-04-30] VITALS: BP 121/93; TEMP 98.4; O2SAT 100
[2023-04-30 04:00] VITALS: BP 125/90; TEMP 98.3; O2SAT 100
[2023-04-30 07:18] LABS: BASOPHILS % (AUTO) 0.2 % (0.0-2.0); EOSINOPHILS # (AUTO) 0.2 K/uL (0.0-0.7); HEMATOCRIT 30 % (39-51); HEMOGLOBIN 9.2 g/dL (13.5-17.5); LYMPHOCYTES # (AUTO) 1.1 K/uL (0.8-4.8); LYMPHOCYTES % (AUTO) 14.1 % (20.0-44.0); MEAN CORPUSCULAR HEMOGLOBIN 23 PG (26.0-33.0); MEAN CORPUSCULAR HGB CONC 31 g/dl (31.0-36.0); MEAN CORPUSCULAR VOLUME 74 fL (80-96); MONOCYTES # (AUTO) 0.5 K/uL (0.1-1.30); MONOCYTES % (AUTO) 6.2 % (2.0-12.0); NEUTROPHILS # (AUTO) 6.2 K/uL (1.8-8.9); NEUTROPHILS % (AUTO) 76.5 % (43.0-81.0); PLATELET COUNT (AUTO) 252 K/uL (150-450); RED BLOOD CELL COUNT(AUTO) 3.96 MIL/uL (4.5-6.0); WHITE BLOOD COUNT (AUTO) 8.1 K/uL (4.3-11.0)
[2023-04-30 07:33] LABS: CALCIUM, SERUM 8.2 mg/dL (8.5-10.1); CREATININE 0.8 mg/dL (0.6-1.3); POTASSIUM 3.6 mmol/L (3.5-5.1)
[2023-04-30 08:00] VITALS: BP 109/82; TEMP 98.8; O2SAT 100
[2023-04-30] MEDS: CEFEPIME 1 GM in IV D5W 50 ML IV ONE (10:50)
[2023-04-30 11:26] LABS: ANISOCYTOSIS 1+; EOSINOPHILS % (MANUAL) 1 % (0-4); HYPOCHROMASIA 1+; LYMPHOCYTES % (MANUAL) 21 % (16-48); MONOCYTES % (MANUAL) 8 % (0-11.0); NEUTROPHILS % (MANUAL) 70 (42-76); PLATELET ESTIMATE ADEQUATE
[2023-04-30 13:10] LABS: *SPE A/G RATIO 0.4 (0.7-1.7); *SPE ALBUMIN 1.9 g/dL (2.9-4.4); *SPE ALPHA-1-GLOBULIN 0.3 g/dL (0.0-0.4); *SPE ALPHA-2-GLOBULIN 0.7 g/dL (0.4-1.0); *SPE BETA GLOBULIN 0.8 g/dL (0.7-1.3); *SPE GLOBULIN, TOTAL 4.4 g/dL (2.2-3.9); *SPE M-SPIKE Not Observed g/dL (Not Observed); *SPE PROTEIN TOTAL 6.3 g/dL (6.0-8.5); *SPEGAMMA GLOBULIN 2.6 g/dL (0.4-1.8)
[2023-04-30 16:00] VITALS: BP 115/78; TEMP 98.5; O2SAT 100
[2023-04-30] MEDS: FLUCONAZOLE (100 MG) 100 MG TABLET GT SCH (19:45)
[2023-04-30] MEDS: CEFEPIME HCL 2 GM in IV D5W 100 ML IV SCH (21:23)
[2023-05-01 00:18] VITALS: BP 118/66; TEMP 98.7; O2SAT 100
[2023-05-01 02:12] LABS: PTH, INTACT 17 pg/mL (15-65)
[2023-05-01 07:59] LABS: CALCIUM, SERUM 8.6 mg/dL (8.5-10.1); CREATININE 0.8 mg/dL (0.6-1.3); POTASSIUM 3.6 mmol/L (3.5-5.1)
[2023-05-01 08:00] VITALS: BP 108/78; TEMP 98.7; O2SAT 100
[2023-05-01] MEDS ORDERED: FLUC100T8 GT (09:56)
[2023-05-01 16:00] VITALS: TEMP 97.8; O2SAT 100
[2023-05-01 16:53] VITALS: BP 118/80
[2023-05-02] MEDS ORDERED: FLUC100T8 GT (07:40)
== END 2023-05-01 17:51 | DRG 727 ==
LOC: ER 13:38 → ICU 16:48 → TELE-TD 17:39 → TELE1 18:23 → TELE-TD 21:36 → TELE1 04-27 12:59 → MEDSG1 04-30 10:11
PROVIDERS: ADMIT Nurse Practitioner Acute Care; ATTEND Internal Medicine
DX: B37.49 Other urogenital candidiasis (principal); G93.41 Metabolic encephalopathy; I21.A1 Myocardial infarction type 2; J96.01 Acute respiratory failure with hypoxia; N17.0 Acute kidney failure with tubular necrosis; E44.0 Moderate protein-calorie malnutrition; E87.0 Hyperosmolality and hypernatremia; E87.29 Other acidosis; D68.69 Other thrombophilia; R65.10 Systemic inflammatory response syndrome (SIRS) of non-infectious origin without acute organ dysfunction; E11.65 Type 2 diabetes mellitus with hyperglycemia; I12.9 Hypertensive chronic kidney disease with stage 1 through stage 4 chronic kidney disease, or unspecified chronic kidney disease; N18.9 Chronic kidney disease, unspecified; E86.9 Volume depletion, unspecified; E11.22 Type 2 diabetes mellitus with diabetic chronic kidney disease; D64.9 Anemia, unspecified; E86.0 Dehydration; E78.5 Hyperlipidemia, unspecified; E86.1 Hypovolemia; E87.6 Hypokalemia; E87.8 Other disorders of electrolyte and fluid balance, not elsewhere classified; E88.09 Other disorders of plasma-protein metabolism, not elsewhere classified; I25.10 Atherosclerotic heart disease of native coronary artery without angina pectoris; K21.00 Gastro-esophageal reflux disease with esophagitis, without bleeding; K29.70 Gastritis, unspecified, without bleeding; R13.10 Dysphagia, unspecified; Z79.4 Long term (current) use of insulin; Z82.49 Family history of ischemic heart disease and other diseases of the circulatory system; Z87.440 Personal history of urinary (tract) infections; Z93.1 Gastrostomy status; E66.9 Obesity, unspecified; Z68.33 Body mass index [BMI] 33.0-33.9, adult; Z74.09 Other reduced mobility; L90.5 Scar conditions and fibrosis of skin; L89.156 Pressure-induced deep tissue damage of sacral region; N20.0 Calculus of kidney; K80.20 Calculus of gallbladder without cholecystitis without obstruction; M89.8X9 Other specified disorders of bone, unspecified site; I69.398 Other sequelae of cerebral infarction; Z88.0 Allergy status to penicillin; Z66 Do not resuscitate
CPT/HCPCS: 36415; 71045-TC; 76770-TC; 80048-TC; 80053-TC; 80202-TC; 81001; 82010-TC; 82248-TC; 82550-TC; 82553; 82962-TC; 83605-TC; 83735-TC; 83970; 84100-TC; 84155; 84165; 84484-TC; 85025-TC; 87040-TC; 87081-TC; 87086-TC; A4216; A4223; G0378; J0692; J1450; J1815; J3370; J3490; J7030; J7050; J7060; J7070

== ENCOUNTER 2023-05-02 05:12 | Inpatient (IN) | payer OTHER ==
[~2023-05-02] VITALS: Ht 172.7 cm; Wt 94.8 kg
[2023-05-02] VITALS (27 sets, daily range): BP systolic 93–116; BP diastolic 68–87; TEMP 97.6–98.5; O2SAT 98–100
[~2023-05-02 05:12] MED LIST changes: -ACET-868 GT; -ACET650S26 GT; -ALBU2.5V38 IH; +AMIN30LI66 GT; -CALAZIME TP; -CEFE2PIG2 IV; +FLUC100T8 GT; -GLUCERNA CAL GT; -Lansoprazole GT; +MENT4PAS TP; -METR500T GT; +NUT.237L30 GT; -NUT.237L65 GT; +[UNRECOGNIZED DRUG - OTHER] GT; -[UNRECOGNIZED DRUG - OTHER] TP
[2023-05-02] MEDS: IV NS 0.9% 1,000 ML BAG IV ONE ×2 (06:13→07:10)
[2023-05-02] MEDS ORDERED: VANCOMYCIN 1 GM in IV D5W 250 ML IV ONE (06:30)
[2023-05-02] MEDS ORDERED: VANCOMYCIN 1 GM /D5W 250 ML PB IV ONE (06:52)
[2023-05-02] MEDS ORDERED: PANTOPRAZOLE 40 MG VIAL ONE ×2 (06:52→07:08)
[2023-05-02] MEDS ORDERED: CEFEPIME 1 GM VIAL ONE (06:52)
[2023-05-02 06:55] LABS: APPEARANCE,URINE SLIGHTLY CLOUDY (CLEAR); BILIRUBIN,URINE NEGATIVE (NEGATIVE); BLOOD, URINE TRACE-INTA Ery/uL (NEGATIVE); COLOR,URINE DARK YELLOW (YELLOW); KETONES,URINE TRACE mg/dL (NEGATIVE); LEUKOCYTE ESTERASE ,URINE NEGATIVE (NEGATIVE); NITRITE, URINE NEGATIVE (NEGATIVE); PH,URINE 5.5 (5.0-8.0); PROTEIN,URINE TRACE mg/dl (NEGATIVE); UGLUCOSE 3+ mg/dL (NEGATIVE); UROBILINOGEN,URINE 0.2 EU/dL (0.2)
[2023-05-02 06:58] LABS: ADD URINE CULTURE NO; BACTERIA,URINE Rare /HPF (None Seen); SQUAMOUS EPITHELIAL CELL,UR Few /HPF (None Seen); WBC,URINE 0-2 /HPF (0-3)
[2023-05-02] MEDS: CEFEPIME 1 GM in IV D5W 50 ML IV ONE (07:10)
[2023-05-02] MEDS: VANCOMYCIN 1 GM in IV D5W 250 ML IV ONE (07:18)
[2023-05-02] MEDS: PANTOPRAZOLE 80 MG in IV NS 0.9% 500 ML IV ONE (07:18)
[2023-05-02 07:28] LABS: CALCIUM, SERUM 8.2 mg/dL (8.5-10.1); CARBON DIOXIDE 28 mmol/L (21-32); CHLORIDE 103 mmol/L (98-107); CREATININE 1.2 mg/dL (0.6-1.3); GLUCOSE 387 mg/dL (74-106); SODIUM SERUM 139 mmol/L (136-145); UREA NITROGEN, BLOOD 25 mg/dL (7-18)
[2023-05-02] MEDS ORDERED: FLUC100T8 GT (07:40)
[2023-05-02 07:41] LABS: ALANINE AMINOTRANSFERASE 53 U/L (12-78); ALBUMIN 1.5 g/dL (3.4-5.0); ALKALINE PHOSPHATASE 67 U/L (46-116); ASPARTATE AMINOTRANSFERASE 56 U/L (15-37); BILIRUBIN,DIRECT 0.2 mg/dL (0.0-0.2); BILIRUBIN,TOTAL 0.5 mg/dL (0.2-1.0); LIPASE 31 U/L (16-77); NT-PRO BNP 389 pg/mL (0-125); TOTAL PROTEIN, SERUM 6.2 g/dL (6.4-8.2)
[2023-05-02 07:46] LABS: LACTIC ACID 3.2 mmol/L (0.4-2.0)
[2023-05-02] MEDS ORDERED: GLUCERNA 1.2 1,000 ML BOTTLE NG PRN (08:00)
[2023-05-02] MEDS ORDERED: DEXTROSE 50%-WATER 50 ML DISP.SYRIN IV PRN (08:30)
[2023-05-02] MEDS ORDERED: ONDANSETRON HCL/PF 4 MG/2 ML VIAL IVP PRN (08:30)
[2023-05-02] MEDS ORDERED: Z GUARD REMEDY 4 OZ OINT TP PRN (08:30)
[2023-05-02] MEDS ORDERED: MAGNESIUM HYDROXIDE 30 ML UDC PO PRN (08:30)
[2023-05-02] MEDS ORDERED: ACETAMINOPHEN 325 MG TABLET PO PRN (08:30)
[2023-05-02] MEDS ORDERED: MORPHINE SULFATE INJ 2 MG/ML DISP.SYRIN IV PRN (08:30)
[2023-05-02] MEDS: PANTOPRAZOLE 40 MG VIAL IV SCH (09:00)
[2023-05-02] MEDS: ASCORBIC ACID 500 MG TABLET GT SCH (09:00)
[2023-05-02] MEDS: CHLORHEXIDINE GLUCONATE 15 ML UDC MM SCH (09:00)
[2023-05-02] MEDS: ALLOPURINOL 100 MG TABLET GT SCH (09:00)
[2023-05-02] MEDS: METOPROLOL TARTRATE 25 MG TABLET GT SCH (09:00)
[2023-05-02] MEDS: COLCHICINE 0.6 MG TABLET GT SCH (09:00)
[2023-05-02] MEDS ORDERED: TICAGRELOR 90 MG TABLET GT SCH ×2 (09:00)
[2023-05-02] MEDS: POLYETHYLENE GLYCOL 3350 17 GM POWD.PACK PO SCH (09:00)
[2023-05-02] MEDS: AMLODIPINE BESYLATE 10 MG TABLET GT SCH (09:00)
[2023-05-02] MEDS: DOCUSATE SODIUM LIQ 100 MG/10 ML UDC PO SCH (09:00)
[2023-05-02 09:03] LABS: BASOPHILS % (AUTO) 0.1 % (0.0-2.0); EOSINOPHILS % (AUTO) 0.2 % (0.0-6.0); LYMPHOCYTES # (AUTO) 0.9 K/uL (0.8-4.8); MEAN CORPUSCULAR HEMOGLOBIN 23 PG (26.0-33.0); MEAN CORPUSCULAR HGB CONC 30 g/dl (31.0-36.0); MEAN CORPUSCULAR VOLUME 75 fL (80-96); MONOCYTES # (AUTO) 0.7 K/uL (0.1-1.30); NEUTROPHILS % (AUTO) 83.7 % (43.0-81.0); PLATELET COUNT (AUTO) 216 K/uL (150-450); RED BLOOD CELL COUNT(AUTO) 2.53 MIL/uL (4.5-6.0); RED CELL DISTRIBUTION WIDTH 32.8 % (11.5-15.0); WHITE BLOOD COUNT (AUTO) 9.6 K/uL (4.3-11.0)
[2023-05-02 09:06] LABS: HEMATOCRIT 19 % (39-51); HEMOGLOBIN 5.7 g/dL (13.5-17.5)
[2023-05-02 09:16] LABS: INR 1.2 (0.91-1.10); PARTIAL THROMBOPLASTIN TIME 26.7 SEC (24.3-34.3); PROTHROMBIN TIME 12.6 SECS (9.2-11.1)
[2023-05-02] MEDS ORDERED: COLCHICINE 0.6 MG TABLET ONE (10:01)
[2023-05-02] MEDS ORDERED: METOPROLOL TARTRATE 25 MG TABLET ONE (10:02)
[2023-05-02] MEDS ORDERED: AMLODIPINE BESYLATE 10 MG TABLET ONE (10:02)
[2023-05-02 10:57] LABS: ANISOCYTOSIS 1+; BAND % (MANUAL) 3 % (0.0-5.0); BASOPHILS % (MANUAL) 0 % (0.0-2.0); EOSINOPHILS % (MANUAL) 3 % (0-4); HYPOCHROMASIA 1+; LYMPHOCYTES % (MANUAL) 11 % (16-48); MONOCYTES % (MANUAL) 8 % (0-11.0); NEUTROPHILS % (MANUAL) 75 (42-76); OVALOCYTES 1+; PLATELET ESTIMATE ADEQUATE; STOMATOCYTES 1+
[2023-05-02 12:57] LABS: IRON, SERUM 20 ug/dl (50-175); TOTAL IRON BINDING CAPACITY 134 ug/dl (250-450)
[2023-05-02] MEDS: IV NS 0.9% 1,000 ML IV PRN (13:00)
[2023-05-02 13:10] LABS: FERRITIN 318 ng/mL (8-388)
[2023-05-02] MEDS: BLOOD SUGAR DIAGNOSTIC 1 EACH STRIP VI SCH (14:59)
[2023-05-02] MEDS: PEG 3350/NA SULF,BICARB,CL/KCL 4,000 ML BOTTLE PO ONE (15:59)
[2023-05-02] MEDS: FLUCONAZOLE (100 MG) 100 MG TABLET GT SCH (21:34)
[2023-05-02] MEDS: ATORVASTATIN 40 MG TABLET PO SCH (21:35)
[2023-05-03] VITALS (59 sets, daily range): BP systolic 90–130; BP diastolic 54–93; TEMP 97.4–98.6; O2SAT 98–100
[2023-05-03 04:39] LABS: BASOPHILS % (AUTO) 0.4 % (0.0-2.0); EOSINOPHILS # (AUTO) 0.2 K/uL (0.0-0.7); EOSINOPHILS % (AUTO) 1.8 % (0.0-6.0); HEMATOCRIT 23 % (39-51); HEMOGLOBIN 7.4 g/dL (13.5-17.5); LYMPHOCYTES # (AUTO) 1.7 K/uL (0.8-4.8); LYMPHOCYTES % (AUTO) 19.2 % (20.0-44.0); MEAN CORPUSCULAR HEMOGLOBIN 25 PG (26.0-33.0); MEAN CORPUSCULAR HGB CONC 32 g/dl (31.0-36.0); MEAN CORPUSCULAR VOLUME 79 fL (80-96); MONOCYTES # (AUTO) 0.7 K/uL (0.1-1.30); MONOCYTES % (AUTO) 8.3 % (2.0-12.0); NEUTROPHILS # (AUTO) 6.2 K/uL (1.8-8.9); NEUTROPHILS % (AUTO) 70.3 % (43.0-81.0); PLATELET COUNT (AUTO) 211 K/uL (150-450); RED BLOOD CELL COUNT(AUTO) 2.89 MIL/uL (4.5-6.0); RED CELL DISTRIBUTION WIDTH 26.1 % (11.5-15.0); WHITE BLOOD COUNT (AUTO) 8.9 K/uL (4.3-11.0)
[2023-05-03 05:02] LABS: BILIRUBIN,TOTAL 0.8 mg/dL (0.2-1.0); CREATININE 0.8 mg/dL (0.6-1.3); MAGNESIUM 1.8 mg/dL (1.8-2.4); PHOSPHORUS 2.5 mg/dL (2.5-4.9); POTASSIUM 3.8 mmol/L (3.5-5.1); TOTAL PROTEIN, SERUM 5.6 g/dL (6.4-8.2)
[2023-05-03 05:14] LABS: ALBUMIN 1.3 g/dL (3.4-5.0)
[2023-05-03] MEDS: INSULIN REGULAR, HUMAN 100 UNIT/ML 3 ML VIAL SQ PRN (08:17)
[2023-05-03] MEDS: ENSURE CLEAR 237 ML LIQUID (MIX BERRY) PO SCH (12:54)
[2023-05-04] VITALS (61 sets, daily range): BP systolic 108–143; BP diastolic 75–96; TEMP 98.2–98.6; O2SAT 94–100
[2023-05-04 04:54] LABS: BASOPHILS % (AUTO) 0.3 % (0.0-2.0); EOSINOPHILS # (AUTO) 0.1 K/uL (0.0-0.7); EOSINOPHILS % (AUTO) 1.1 % (0.0-6.0); HEMATOCRIT 26 % (39-51); HEMOGLOBIN 8.4 g/dL (13.5-17.5); LYMPHOCYTES # (AUTO) 1.5 K/uL (0.8-4.8); LYMPHOCYTES % (AUTO) 12.8 % (20.0-44.0); MEAN CORPUSCULAR HEMOGLOBIN 26 PG (26.0-33.0); MEAN CORPUSCULAR HGB CONC 32 g/dl (31.0-36.0); MEAN CORPUSCULAR VOLUME 81 fL (80-96); MONOCYTES # (AUTO) 0.6 K/uL (0.1-1.30); MONOCYTES % (AUTO) 5.5 % (2.0-12.0); NEUTROPHILS # (AUTO) 9.4 K/uL (1.8-8.9); NEUTROPHILS % (AUTO) 80.3 % (43.0-81.0); PLATELET COUNT (AUTO) 224 K/uL (150-450); RED BLOOD CELL COUNT(AUTO) 3.25 MIL/uL (4.5-6.0); RED CELL DISTRIBUTION WIDTH 24.3 % (11.5-15.0); WHITE BLOOD COUNT (AUTO) 11.7 K/uL (4.3-11.0)
[2023-05-04 05:15] LABS: CALCIUM, SERUM 8.1 mg/dL (8.5-10.1); CREATININE 0.6 mg/dL (0.6-1.3); MAGNESIUM 1.7 mg/dL (1.8-2.4); PHOSPHORUS 2.8 mg/dL (2.5-4.9); POTASSIUM 3.3 mmol/L (3.5-5.1)
[2023-05-04] MEDS: POTASSIUM CL. PREMIX PERIPHER. 50 ML IV SCH (09:09)
[2023-05-04] MEDS: Magnesium 1GM/D5W 100ML PREMIX 100 ML IV SCH (10:45)
[2023-05-04 12:45] LABS: HEMOGLOBIN 8.9 g/dL (13.5-17.5)
[2023-05-04] MEDS ORDERED: ANESTHESIA TRAY IN PYXIS 1 EA TRAY MC ONE (17:41)
[2023-05-04 20:49] LABS: HEMOGLOBIN 8.9 g/dL (13.5-17.5)
[2023-05-04] MEDS: *INSULIN REGULAR(HUMULIN R)HUM 100 UNIT/ML VIAL SQ PRN (22:07)
[2023-05-05] VITALS: BP 119/88; TEMP 98.4; O2SAT 99
[2023-05-05 04:00] VITALS: BP 123/88; TEMP 98.2; O2SAT 97
[2023-05-05 04:07] LABS: HEMOGLOBIN 8.3 g/dL (13.5-17.5)
[2023-05-05 07:46] LABS: CREATININE 0.6 mg/dL (0.6-1.3); POTASSIUM 3.3 mmol/L (3.5-5.1)
[2023-05-05 08:00] VITALS: BP 134/91; TEMP 99; O2SAT 98
[2023-05-05] MEDS: FLUCONAZOLE (100 MG) 100 MG TABLET PO STA (09:04)
[2023-05-05] MEDS ORDERED: MAGNESIUM HYDROXIDE 30 ML UDC GT PRN (10:32)
[2023-05-05] MEDS: POTASSIUM CL. PREMIX PERIPHER. 50 ML IV SCH (10:39)
[2023-05-05 12:00] VITALS: BP 123/89; TEMP 97.5; O2SAT 98
[2023-05-05] MEDS: ENSURE CLEAR 237 ML LIQUID (MIX BERRY) GT SCH (12:00)
[2023-05-05 12:03] LABS: HEMOGLOBIN 8.8 g/dL (13.5-17.5)
[2023-05-05] MEDS: GLUCERNA 1.2 1,000 ML BOTTLE GT PRN (13:45)
[2023-05-05 16:00] VITALS: BP 123/84; TEMP 99; O2SAT 94
[2023-05-05] MEDS: DOCUSATE SODIUM LIQ 100 MG/10 ML UDC GT SCH (17:10)
[2023-05-05 20:00] VITALS: BP 108/72; TEMP 99.1; O2SAT 99
[2023-05-05 20:06] LABS: HEMOGLOBIN 8.5 g/dL (13.5-17.5)
[2023-05-05] MEDS: ATORVASTATIN 40 MG TABLET GT SCH (21:15)
[2023-05-06] VITALS (8 sets, daily range): BP systolic 122–135; BP diastolic 80–93; TEMP 98.5–99.5; O2SAT 96–100
[2023-05-06] MEDS: POLYETHYLENE GLYCOL 3350 17 GM POWD.PACK GT SCH (08:47)
[2023-05-06 09:40] LABS: BASOPHILS % (AUTO) 0.1 % (0.0-2.0); EOSINOPHILS # (AUTO) 0.1 K/uL (0.0-0.7); EOSINOPHILS % (AUTO) 1.2 % (0.0-6.0); HEMATOCRIT 26 % (39-51); HEMOGLOBIN 8.5 g/dL (13.5-17.5); LYMPHOCYTES # (AUTO) 1.4 K/uL (0.8-4.8); LYMPHOCYTES % (AUTO) 16.1 % (20.0-44.0); MEAN CORPUSCULAR HEMOGLOBIN 26 PG (26.0-33.0); MEAN CORPUSCULAR HGB CONC 33 g/dl (31.0-36.0); MEAN CORPUSCULAR VOLUME 81 fL (80-96); MONOCYTES # (AUTO) 0.6 K/uL (0.1-1.30); MONOCYTES % (AUTO) 6.2 % (2.0-12.0); NEUTROPHILS # (AUTO) 6.9 K/uL (1.8-8.9); NEUTROPHILS % (AUTO) 76.4 % (43.0-81.0); PLATELET COUNT (AUTO) 284 K/uL (150-450); RED BLOOD CELL COUNT(AUTO) 3.23 MIL/uL (4.5-6.0); RED CELL DISTRIBUTION WIDTH 24.6 % (11.5-15.0)
[2023-05-06 09:49] LABS: CALCIUM, SERUM 7.6 mg/dL (8.5-10.1); CREATININE 0.6 mg/dL (0.6-1.3); POTASSIUM 3.1 mmol/L (3.5-5.1)
[2023-05-06] MEDS: POTASSIUM CHLORIDE 20 MEQ POWDER PACKET GT ONE (11:49)
[2023-05-06] MEDS ORDERED: PANT40TA2 PO (12:15)
[2023-05-06] MEDS: GLUCERNA 1.2 1,000 ML BOTTLE GT SCH (17:55)
[2023-05-07 04:00] VITALS: BP 125/85; TEMP 99; O2SAT 98
[2023-05-07 07:17] LABS: BASOPHILS % (AUTO) 0.2 % (0.0-2.0); EOSINOPHILS % (AUTO) 0.2 % (0.0-6.0); HEMATOCRIT 30 % (39-51); HEMOGLOBIN 9.6 g/dL (13.5-17.5); LYMPHOCYTES # (AUTO) 0.7 K/uL (0.8-4.8); LYMPHOCYTES % (AUTO) 6.1 % (20.0-44.0); MEAN CORPUSCULAR HEMOGLOBIN 26 PG (26.0-33.0); MEAN CORPUSCULAR HGB CONC 32 g/dl (31.0-36.0); MEAN CORPUSCULAR VOLUME 82 fL (80-96); MONOCYTES # (AUTO) 0.6 K/uL (0.1-1.30); MONOCYTES % (AUTO) 4.5 % (2.0-12.0); NEUTROPHILS # (AUTO) 10.9 K/uL (1.8-8.9); PLATELET COUNT (AUTO) 346 K/uL (150-450); RED BLOOD CELL COUNT(AUTO) 3.63 MIL/uL (4.5-6.0); RED CELL DISTRIBUTION WIDTH 24.1 % (11.5-15.0); WHITE BLOOD COUNT (AUTO) 12.2 K/uL (4.3-11.0)
[2023-05-07 08:00] VITALS: BP 114/78; TEMP 99; O2SAT 98
[2023-05-07] MEDS: PANTOPRAZOLE 40 MG/PACK PACK PO SCH (09:58)
[2023-05-07 16:00] VITALS: BP 122/69; TEMP 98.6
[2023-05-07 20:00] VITALS: BP 109/82; TEMP 99.5; O2SAT 96
[2023-05-07 20:33] VITALS: O2SAT 94
[2023-05-08 04:00] VITALS: BP 123/81; TEMP 98.8; O2SAT 96
[2023-05-08 07:29] LABS: BASOPHILS % (AUTO) 0.2 % (0.0-2.0); EOSINOPHILS # (AUTO) 0.1 K/uL (0.0-0.7); EOSINOPHILS % (AUTO) 0.7 % (0.0-6.0); HEMATOCRIT 27 % (39-51); HEMOGLOBIN 8.7 g/dL (13.5-17.5); LYMPHOCYTES # (AUTO) 1.8 K/uL (0.8-4.8); LYMPHOCYTES % (AUTO) 13.8 % (20.0-44.0); MEAN CORPUSCULAR HEMOGLOBIN 26 PG (26.0-33.0); MEAN CORPUSCULAR HGB CONC 32 g/dl (31.0-36.0); MEAN CORPUSCULAR VOLUME 81 fL (80-96); MONOCYTES # (AUTO) 0.8 K/uL (0.1-1.30); MONOCYTES % (AUTO) 6.5 % (2.0-12.0); NEUTROPHILS # (AUTO) 10.1 K/uL (1.8-8.9); NEUTROPHILS % (AUTO) 78.8 % (43.0-81.0); PLATELET COUNT (AUTO) 352 K/uL (150-450); RED BLOOD CELL COUNT(AUTO) 3.38 MIL/uL (4.5-6.0); RED CELL DISTRIBUTION WIDTH 24.2 % (11.5-15.0); WHITE BLOOD COUNT (AUTO) 12.9 K/uL (4.3-11.0)
[2023-05-08 08:00] VITALS: BP 114/71; TEMP 98.6; O2SAT 94
[2023-05-08 16:00] VITALS: BP 111/69; TEMP 97.9; O2SAT 98
[2023-05-08 20:00] VITALS: BP 127/78; TEMP 97.9; O2SAT 98
[2023-05-08 21:05] VITALS: O2SAT 95
[2023-05-08] MEDS: ACETAMINOPHEN 650 MG/20.3 ML UDC GT PRN (22:26)
[2023-05-09 04:00] VITALS: BP 124/82; TEMP 98.4; O2SAT 97
[2023-05-09 08:00] VITALS: BP 124/80; TEMP 100; O2SAT 98
[2023-05-09 08:03] LABS: BASOPHILS % (AUTO) 0.2 % (0.0-2.0); EOSINOPHILS % (AUTO) 0.2 % (0.0-6.0); HEMATOCRIT 27 % (39-51); HEMOGLOBIN 8.7 g/dL (13.5-17.5); LYMPHOCYTES # (AUTO) 1.3 K/uL (0.8-4.8); LYMPHOCYTES % (AUTO) 9.5 % (20.0-44.0); MEAN CORPUSCULAR HEMOGLOBIN 27 PG (26.0-33.0); MEAN CORPUSCULAR HGB CONC 33 g/dl (31.0-36.0); MEAN CORPUSCULAR VOLUME 81 fL (80-96); MONOCYTES % (AUTO) 6.9 % (2.0-12.0); NEUTROPHILS # (AUTO) 11.6 K/uL (1.8-8.9); NEUTROPHILS % (AUTO) 83.2 % (43.0-81.0); PLATELET COUNT (AUTO) 355 K/uL (150-450); RED BLOOD CELL COUNT(AUTO) 3.28 MIL/uL (4.5-6.0); RED CELL DISTRIBUTION WIDTH 23.9 % (11.5-15.0); WHITE BLOOD COUNT (AUTO) 13.9 K/uL (4.3-11.0)
[2023-05-09 16:00] VITALS: BP 114/73; TEMP 98.1; O2SAT 97
[2023-05-09 20:00] VITALS: BP 104/75; TEMP 98.9; O2SAT 98
[2023-05-10 01:35] VITALS: O2SAT 96
[2023-05-10 04:00] VITALS: BP 116/86; TEMP 98.1; O2SAT 96
[2023-05-10 07:22] LABS: BASOPHILS % (AUTO) 0.3 % (0.0-2.0); EOSINOPHILS # (AUTO) 0.2 K/uL (0.0-0.7); EOSINOPHILS % (AUTO) 1.8 % (0.0-6.0); HEMATOCRIT 26 % (39-51); HEMOGLOBIN 8.4 g/dL (13.5-17.5); LYMPHOCYTES # (AUTO) 1.2 K/uL (0.8-4.8); LYMPHOCYTES % (AUTO) 11.6 % (20.0-44.0); MEAN CORPUSCULAR HEMOGLOBIN 26 PG (26.0-33.0); MEAN CORPUSCULAR HGB CONC 32 g/dl (31.0-36.0); MEAN CORPUSCULAR VOLUME 82 fL (80-96); MONOCYTES # (AUTO) 0.7 K/uL (0.1-1.30); MONOCYTES % (AUTO) 6.2 % (2.0-12.0); NEUTROPHILS # (AUTO) 8.5 K/uL (1.8-8.9); NEUTROPHILS % (AUTO) 80.1 % (43.0-81.0); PLATELET COUNT (AUTO) 373 K/uL (150-450); RED BLOOD CELL COUNT(AUTO) 3.22 MIL/uL (4.5-6.0); RED CELL DISTRIBUTION WIDTH 23.4 % (11.5-15.0); WHITE BLOOD COUNT (AUTO) 10.6 K/uL (4.3-11.0)
[2023-05-10 07:45] LABS: CALCIUM, SERUM 8.1 mg/dL (8.5-10.1); CREATININE 0.6 mg/dL (0.6-1.3); PHOSPHORUS 3.2 mg/dL (2.5-4.9); POTASSIUM 3.4 mmol/L (3.5-5.1)
[2023-05-10 08:00] VITALS: BP 119/84; TEMP 98.6; O2SAT 99
[2023-05-10] MEDS: POTASSIUM CHLORIDE 20 MEQ POWDER PACKET NG SCH (10:33)
[2023-05-10 16:00] VITALS: BP 110/79; TEMP 99.3; O2SAT 98
[2023-05-10 20:00] VITALS: BP 115/80; TEMP 98.9; O2SAT 98
[2023-05-11 00:03] VITALS: O2SAT 97
[2023-05-11 04:00] VITALS: BP 130/87; TEMP 97.8; O2SAT 98
[2023-05-11 07:51] LABS: BASOPHILS % (AUTO) 0.3 % (0.0-2.0); EOSINOPHILS # (AUTO) 0.1 K/uL (0.0-0.7); EOSINOPHILS % (AUTO) 1.5 % (0.0-6.0); HEMATOCRIT 26 % (39-51); HEMOGLOBIN 8.5 g/dL (13.5-17.5); LYMPHOCYTES # (AUTO) 1.3 K/uL (0.8-4.8); LYMPHOCYTES % (AUTO) 13.8 % (20.0-44.0); MEAN CORPUSCULAR HEMOGLOBIN 26 PG (26.0-33.0); MEAN CORPUSCULAR HGB CONC 33 g/dl (31.0-36.0); MEAN CORPUSCULAR VOLUME 81 fL (80-96); MONOCYTES # (AUTO) 0.7 K/uL (0.1-1.30); MONOCYTES % (AUTO) 7.2 % (2.0-12.0); NEUTROPHILS # (AUTO) 7.4 K/uL (1.8-8.9); NEUTROPHILS % (AUTO) 77.2 % (43.0-81.0); PLATELET COUNT (AUTO) 397 K/uL (150-450); RED BLOOD CELL COUNT(AUTO) 3.23 MIL/uL (4.5-6.0); RED CELL DISTRIBUTION WIDTH 23.3 % (11.5-15.0); WHITE BLOOD COUNT (AUTO) 9.5 K/uL (4.3-11.0)
[2023-05-11 08:00] VITALS: BP 122/82; TEMP 98.8; O2SAT 97
[2023-05-11 08:13] LABS: CALCIUM, SERUM 8.3 mg/dL (8.5-10.1); CREATININE 0.6 mg/dL (0.6-1.3); MAGNESIUM 1.9 mg/dL (1.8-2.4); PHOSPHORUS 4.1 mg/dL (2.5-4.9); POTASSIUM 3.5 mmol/L (3.5-5.1)
[2023-05-11] MEDS: hydrALAZINE HCL 25 MG TABLET PO SCH (12:58)
[2023-05-11 16:00] VITALS: BP 124/74; TEMP 98.7; O2SAT 99
[2023-05-11 18:00] VITALS: BP 111/77; TEMP 98.5; O2SAT 99
[2023-05-11 20:00] VITALS: BP 114/74; TEMP 98.1; O2SAT 100
[2023-05-12 04:00] VITALS: BP 125/77; TEMP 98.1; O2SAT 99
[2023-05-12 08:00] VITALS: BP 171/82; TEMP 98.4; O2SAT 99
[2023-05-12] MEDS: THERAHONEY GEL 1.5 OZ TUBE TP SCH (15:25)
[2023-05-12 16:00] VITALS: BP 131/77; TEMP 98.4; O2SAT 99
[2023-05-12 23:36] VITALS: BP 134/77; TEMP 98.4; O2SAT 99
[2023-05-13 02:29] VITALS: O2SAT 98
[2023-05-13 04:00] VITALS: BP 128/88; TEMP 98.4; O2SAT 98
[2023-05-13 08:00] VITALS: BP 120/89; TEMP 97.4; O2SAT 100
[2023-05-13] MEDS ORDERED: hydrALAZINE HCL 25 MG TABLET PO PRN ×2 (14:00)
[2023-05-13 16:00] VITALS: BP 114/84; TEMP 97.3; O2SAT 96
[2023-05-13 20:00] VITALS: BP 107/77; TEMP 98; O2SAT 96
[2023-05-14 04:00] VITALS: BP 118/84; TEMP 98; O2SAT 96
[2023-05-14 07:24] LABS: BASOPHILS % (AUTO) 0.4 % (0.0-2.0); EOSINOPHILS # (AUTO) 0.1 K/uL (0.0-0.7); EOSINOPHILS % (AUTO) 0.5 % (0.0-6.0); HEMATOCRIT 27 % (39-51); HEMOGLOBIN 8.7 g/dL (13.5-17.5); LYMPHOCYTES # (AUTO) 1.5 K/uL (0.8-4.8); LYMPHOCYTES % (AUTO) 13.8 % (20.0-44.0); MEAN CORPUSCULAR HEMOGLOBIN 26 PG (26.0-33.0); MEAN CORPUSCULAR HGB CONC 32 g/dl (31.0-36.0); MEAN CORPUSCULAR VOLUME 80 fL (80-96); MONOCYTES # (AUTO) 1.1 K/uL (0.1-1.30); MONOCYTES % (AUTO) 9.5 % (2.0-12.0); NEUTROPHILS # (AUTO) 8.4 K/uL (1.8-8.9); NEUTROPHILS % (AUTO) 75.8 % (43.0-81.0); PLATELET COUNT (AUTO) 497 K/uL (150-450); RED BLOOD CELL COUNT(AUTO) 3.38 MIL/uL (4.5-6.0); WHITE BLOOD COUNT (AUTO) 11.1 K/uL (4.3-11.0)
[2023-05-14 07:53] LABS: CALCIUM, SERUM 8.6 mg/dL (8.5-10.1); CREATININE 0.8 mg/dL (0.6-1.3); POTASSIUM 3.9 mmol/L (3.5-5.1)
[2023-05-14 08:00] VITALS: BP 120/84; TEMP 98.1; O2SAT 98
[2023-05-14 16:00] VITALS: BP 123/79; TEMP 98.9; O2SAT 98
[2023-05-14 20:00] VITALS: BP 133/84; TEMP 97.9; O2SAT 97
[2023-05-15 04:00] VITALS: BP 130/99; TEMP 98.1; O2SAT 95
[2023-05-15 06:58] LABS: BASOPHILS % (AUTO) 0.2 % (0.0-2.0); EOSINOPHILS # (AUTO) 0.1 K/uL (0.0-0.7); EOSINOPHILS % (AUTO) 0.7 % (0.0-6.0); HEMATOCRIT 29 % (39-51); HEMOGLOBIN 9.6 g/dL (13.5-17.5); LYMPHOCYTES # (AUTO) 1.5 K/uL (0.8-4.8); LYMPHOCYTES % (AUTO) 16.2 % (20.0-44.0); MEAN CORPUSCULAR HEMOGLOBIN 26 PG (26.0-33.0); MEAN CORPUSCULAR HGB CONC 33 g/dl (31.0-36.0); MEAN CORPUSCULAR VOLUME 80 fL (80-96); MONOCYTES % (AUTO) 10.7 % (2.0-12.0); NEUTROPHILS # (AUTO) 6.6 K/uL (1.8-8.9); NEUTROPHILS % (AUTO) 72.2 % (43.0-81.0); PLATELET COUNT (AUTO) 534 K/uL (150-450); RED BLOOD CELL COUNT(AUTO) 3.68 MIL/uL (4.5-6.0); RED CELL DISTRIBUTION WIDTH 22.8 % (11.5-15.0); WHITE BLOOD COUNT (AUTO) 9.2 K/uL (4.3-11.0)
[2023-05-15 07:12] LABS: CALCIUM, SERUM 8.7 mg/dL (8.5-10.1); CREATININE 0.8 mg/dL (0.6-1.3); MAGNESIUM 1.8 mg/dL (1.8-2.4); PHOSPHORUS 3.7 mg/dL (2.5-4.9); POTASSIUM 3.7 mmol/L (3.5-5.1)
[2023-05-15 08:00] VITALS: BP 124/92; TEMP 99; O2SAT 95
[2023-05-15 16:00] VITALS: BP 127/87; TEMP 99.7; O2SAT 95
[2023-05-15 20:00] VITALS: BP 123/72; TEMP 100.6; O2SAT 95
[2023-05-16 04:00] VITALS: BP 140/92; TEMP 99.3; O2SAT 97
[2023-05-16 06:18] LABS: CALCIUM, SERUM 8.6 mg/dL (8.5-10.1); CREATININE 0.8 mg/dL (0.6-1.3); POTASSIUM 3.5 mmol/L (3.5-5.1)
[2023-05-16 06:22] LABS: BASOPHILS % (AUTO) 0.2 % (0.0-2.0); EOSINOPHILS # (AUTO) 0.1 K/uL (0.0-0.7); EOSINOPHILS % (AUTO) 0.6 % (0.0-6.0); HEMATOCRIT 30 % (39-51); HEMOGLOBIN 9.7 g/dL (13.5-17.5); LYMPHOCYTES # (AUTO) 1.4 K/uL (0.8-4.8); LYMPHOCYTES % (AUTO) 13.9 % (20.0-44.0); MEAN CORPUSCULAR HEMOGLOBIN 26 PG (26.0-33.0); MEAN CORPUSCULAR HGB CONC 33 g/dl (31.0-36.0); MEAN CORPUSCULAR VOLUME 80 fL (80-96); MONOCYTES # (AUTO) 0.8 K/uL (0.1-1.30); MONOCYTES % (AUTO) 7.7 % (2.0-12.0); NEUTROPHILS # (AUTO) 7.9 K/uL (1.8-8.9); NEUTROPHILS % (AUTO) 77.6 % (43.0-81.0); PLATELET COUNT (AUTO) 530 K/uL (150-450); RED BLOOD CELL COUNT(AUTO) 3.74 MIL/uL (4.5-6.0); RED CELL DISTRIBUTION WIDTH 22.4 % (11.5-15.0); WHITE BLOOD COUNT (AUTO) 10.2 K/uL (4.3-11.0)
[2023-05-16 10:54] VITALS: BP 145/90; TEMP 99.3; O2SAT 97
[2023-05-16 12:00] VITALS: BP 138/75; TEMP 98.3; O2SAT 99
[2023-05-16 16:00] VITALS: BP 138/75; TEMP 98.5
[2023-05-16 20:00] VITALS: BP 152/89; TEMP 98.2; O2SAT 96
[2023-05-17 05:47] VITALS: BP 150/91; TEMP 98.4; O2SAT 95
[2023-05-17 08:00] VITALS: BP 127/97; TEMP 98.6; O2SAT 93
[2023-05-17 16:00] VITALS: BP 127/88; TEMP 99.3; O2SAT 98
[2023-05-17 20:00] VITALS: BP 115/85; TEMP 97.8; O2SAT 98
[2023-05-18 04:00] VITALS: BP 119/82; TEMP 98.2; O2SAT 98
[2023-05-18 08:00] VITALS: BP 124/96; TEMP 99.5; O2SAT 96
[2023-05-18 16:00] VITALS: BP 124/91; TEMP 99.3; O2SAT 96
[2023-05-18 20:00] VITALS: BP 123/60; TEMP 98; O2SAT 99
[2023-05-19 04:00] VITALS: BP 125/75; TEMP 97.6; O2SAT 98
[2023-05-19 09:11] VITALS: BP 139/87; TEMP 98.8; O2SAT 98
[2023-05-19 16:00] VITALS: TEMP 97.8
[2023-05-19 20:00] VITALS: BP 128/73; TEMP 97.4
[2023-05-20 04:00] VITALS: BP 114/60; TEMP 98.8; O2SAT 99
[2023-05-20 08:00] VITALS: BP 124/90; TEMP 99; O2SAT 99
[2023-05-20 19:34] VITALS: BP 128/94; TEMP 98.6
[2023-05-20 20:00] VITALS: BP 117/87; TEMP 99; O2SAT 98
[2023-05-21 04:00] VITALS: BP_SYST 117; BP_SYST 135; BP_DIAS 87; BP_DIAS 93; TEMP 99; O2SAT 98
[2023-05-21 08:00] VITALS: BP 121/85; TEMP 99.3; O2SAT 97
[2023-05-21 16:00] VITALS: BP 125/79; TEMP 99.4
[2023-05-21 20:00] VITALS: BP 134/92; TEMP 98.1; O2SAT 98
[2023-05-22 04:00] VITALS: BP 138/95; TEMP 98.3; O2SAT 98
[2023-05-22 08:00] VITALS: BP 131/95; TEMP 97.4; O2SAT 98
[2023-05-22 16:00] VITALS: BP 132/86; TEMP 99.5; O2SAT 94
[2023-05-22 20:00] VITALS: BP 127/88; TEMP 97.7; O2SAT 94
[2023-05-23 04:00] VITALS: BP 114/84; TEMP 98.4; O2SAT 96
[2023-05-23 08:00] VITALS: BP 134/101; TEMP 99.9; O2SAT 96
[2023-05-23 09:43] LABS: BASOPHILS # (AUTO) 0.1 K/uL (0.0-0.2); BASOPHILS % (AUTO) 0.7 % (0.0-2.0); EOSINOPHILS # (AUTO) 0.1 K/uL (0.0-0.7); EOSINOPHILS % (AUTO) 0.9 % (0.0-6.0); HEMATOCRIT 33 % (39-51); HEMOGLOBIN 10.2 g/dL (13.5-17.5); LYMPHOCYTES # (AUTO) 1.8 K/uL (0.8-4.8); LYMPHOCYTES % (AUTO) 15.5 % (20.0-44.0); MEAN CORPUSCULAR HEMOGLOBIN 25 PG (26.0-33.0); MEAN CORPUSCULAR HGB CONC 31 g/dl (31.0-36.0); MEAN CORPUSCULAR VOLUME 80 fL (80-96); MONOCYTES # (AUTO) 0.8 K/uL (0.1-1.30); MONOCYTES % (AUTO) 6.8 % (2.0-12.0); NEUTROPHILS # (AUTO) 8.9 K/uL (1.8-8.9); NEUTROPHILS % (AUTO) 76.1 % (43.0-81.0); PLATELET COUNT (AUTO) 559 K/uL (150-450); RED BLOOD CELL COUNT(AUTO) 4.07 MIL/uL (4.5-6.0); RED CELL DISTRIBUTION WIDTH 21.7 % (11.5-15.0); WHITE BLOOD COUNT (AUTO) 11.7 K/uL (4.3-11.0)
[2023-05-23 16:00] VITALS: BP 119/85; TEMP 98.3; O2SAT 96
[2023-05-23 20:00] VITALS: BP 126/88; TEMP 99.5; O2SAT 99
[2023-05-24 04:00] VITALS: BP 136/86; TEMP 99.5; O2SAT 97
[2023-05-24 08:00] VITALS: BP 133/98; TEMP 97.9; O2SAT 95
[2023-05-24 16:00] VITALS: BP 129/97; TEMP 98.2
[2023-05-24 20:00] VITALS: BP 129/96; TEMP 98; O2SAT 97
[2023-05-24] MEDS: INSULIN GLARGINE, 100 UNIT/ML CARTRIDGE SQ SCH (22:04)
[2023-05-25 04:00] VITALS: BP 121/95; TEMP 99; O2SAT 95
[2023-05-25 08:00] VITALS: BP 132/103; TEMP 98.6; O2SAT 95
[2023-05-25 16:00] VITALS: BP 127/98; TEMP 97.9; O2SAT 93
[2023-05-25 20:00] VITALS: BP 130/95; TEMP 98.2; O2SAT 98
[2023-05-25] MEDS: INSULIN GLARGINE, 100 UNIT/ML CARTRIDGE SQ SCH (21:38)
[2023-05-26 04:00] VITALS: BP 128/64; TEMP 98.5; O2SAT 97
[2023-05-26 08:00] VITALS: BP 137/100; TEMP 97.9; O2SAT 98
[2023-05-26 16:00] VITALS: BP 136/100; TEMP 97.5; O2SAT 96
[2023-05-26 20:00] VITALS: BP 135/90; TEMP 98.3; O2SAT 96
[2023-05-27 04:00] VITALS: BP 135/90; TEMP 98.3; O2SAT 96
[2023-05-27 08:00] VITALS: BP 135/103; TEMP 98.3; O2SAT 96
[2023-05-27 17:46] VITALS: BP 130/100; TEMP 97.9; O2SAT 98
[2023-05-27 20:00] VITALS: BP 113/86; TEMP 99; O2SAT 98
[2023-05-27] MEDS: INSULIN GLARGINE, 100 UNIT/ML CARTRIDGE SQ SCH (22:17)
[2023-05-28 04:00] VITALS: BP 116/90; TEMP 99; O2SAT 98
[2023-05-28 08:00] VITALS: BP 130/100; TEMP 97.9; O2SAT 98
[2023-05-28 17:48] VITALS: BP 130/100; TEMP 97.9; O2SAT 98
[2023-05-28 20:00] VITALS: BP 106/64; TEMP 97.5; O2SAT 94
[2023-05-29 04:00] VITALS: BP 118/87; TEMP 97.8; O2SAT 95
[2023-05-29 08:00] VITALS: BP 131/95; TEMP 97.9; O2SAT 97
[2023-05-29 16:00] VITALS: BP 120/85; TEMP 98.2; O2SAT 95
[2023-05-29] MEDS: METOPROLOL TARTRATE 25 MG TABLET GT SCH (16:55)
[2023-05-29 20:00] VITALS: BP 117/88; TEMP 97.3; O2SAT 96
[2023-05-30 04:00] VITALS: BP 123/93; TEMP 98.8; O2SAT 96
[2023-05-30 06:52] LABS: BASOPHILS % (AUTO) 0.2 % (0.0-2.0); EOSINOPHILS # (AUTO) 0.2 K/uL (0.0-0.7); EOSINOPHILS % (AUTO) 1.3 % (0.0-6.0); HEMATOCRIT 33 % (39-51); HEMOGLOBIN 10.3 g/dL (13.5-17.5); LYMPHOCYTES # (AUTO) 2.1 K/uL (0.8-4.8); LYMPHOCYTES % (AUTO) 14.4 % (20.0-44.0); MEAN CORPUSCULAR HEMOGLOBIN 25 PG (26.0-33.0); MEAN CORPUSCULAR HGB CONC 31 g/dl (31.0-36.0); MEAN CORPUSCULAR VOLUME 80 fL (80-96); MONOCYTES # (AUTO) 0.8 K/uL (0.1-1.30); MONOCYTES % (AUTO) 5.6 % (2.0-12.0); NEUTROPHILS # (AUTO) 11.4 K/uL (1.8-8.9); NEUTROPHILS % (AUTO) 78.5 % (43.0-81.0); PLATELET COUNT (AUTO) 389 K/uL (150-450); RED BLOOD CELL COUNT(AUTO) 4.15 MIL/uL (4.5-6.0); RED CELL DISTRIBUTION WIDTH 20.7 % (11.5-15.0); WHITE BLOOD COUNT (AUTO) 14.5 K/uL (4.3-11.0)
[2023-05-30] MEDS ORDERED: SILVER NITRATE APPLICATOR 1 EA BOX TP PRN (07:00)
[2023-05-30 07:08] LABS: CALCIUM, SERUM 8.6 mg/dL (8.5-10.1); CREATININE 0.9 mg/dL (0.6-1.3); POTASSIUM 3.2 mmol/L (3.5-5.1)
[2023-05-30 08:00] VITALS: BP 128/97; TEMP 98.1; O2SAT 94
[2023-05-30] MEDS ORDERED: METO25TA6 PO (09:12)
[2023-05-30] MEDS: LIDOCAINE 1%-EPI 1:100,000 20 ML VIAL TP ONE (10:56)
[2023-05-30] MEDS: POTASSIUM CHLORIDE 20 MEQ POWDER PACKET NG SCH (11:35)
[2023-05-30 16:00] VITALS: BP 126/90; TEMP 98.4; O2SAT 93
[2023-05-30 20:00] VITALS: BP 124/90; TEMP 99.5; O2SAT 97
[2023-05-31 04:00] VITALS: BP 137/73; TEMP 98.8; O2SAT 96
[2023-05-31 08:00] VITALS: BP 137/81; TEMP 98.3; O2SAT 95
[2023-05-31] MEDS: POTASSIUM CHLORIDE 20 MEQ POWDER PACKET GT SCH (08:33)
[2023-05-31] MEDS: IV D5W 1,000 ML IV ONE (08:42)
[2023-05-31 13:23] LABS: URINE SODIUM, RANDOM 37 mmol/l (40-220)
[2023-05-31 16:00] VITALS: BP 128/91; TEMP 98.6; O2SAT 95
[2023-05-31 16:54] LABS: OSMOLALITY,URINE 616 mOS/kg (340-1090)
[2023-05-31 20:00] VITALS: BP 134/97; TEMP 98.4; O2SAT 96
[2023-06-01 04:00] VITALS: BP 124/97; TEMP 97.9; O2SAT 97
[2023-06-01 06:54] LABS: BASOPHILS % (AUTO) 0.3 % (0.0-2.0); EOSINOPHILS # (AUTO) 0.4 K/uL (0.0-0.7); EOSINOPHILS % (AUTO) 3.7 % (0.0-6.0); HEMATOCRIT 32 % (39-51); HEMOGLOBIN 10.1 g/dL (13.5-17.5); LYMPHOCYTES # (AUTO) 2.2 K/uL (0.8-4.8); LYMPHOCYTES % (AUTO) 21.6 % (20.0-44.0); MEAN CORPUSCULAR HEMOGLOBIN 25 PG (26.0-33.0); MEAN CORPUSCULAR HGB CONC 31 g/dl (31.0-36.0); MEAN CORPUSCULAR VOLUME 81 fL (80-96); MONOCYTES # (AUTO) 0.8 K/uL (0.1-1.30); MONOCYTES % (AUTO) 7.5 % (2.0-12.0); NEUTROPHILS # (AUTO) 6.9 K/uL (1.8-8.9); NEUTROPHILS % (AUTO) 66.9 % (43.0-81.0); PLATELET COUNT (AUTO) 289 K/uL (150-450); RED BLOOD CELL COUNT(AUTO) 3.98 MIL/uL (4.5-6.0); RED CELL DISTRIBUTION WIDTH 20.6 % (11.5-15.0); WHITE BLOOD COUNT (AUTO) 10.3 K/uL (4.3-11.0)
[2023-06-01 07:35] LABS: THYROID STIMULATING HORMONE 1.775 uIU/mL (0.358-3.74); URIC ACID 3.9 mg/dL (2.6-7.2)
[2023-06-01 07:46] LABS: CALCIUM, SERUM 8.3 mg/dL (8.5-10.1); CREATININE 0.8 mg/dL (0.6-1.3); MAGNESIUM 1.8 mg/dL (1.8-2.4); PHOSPHORUS 3.5 mg/dL (2.5-4.9); POTASSIUM 3.5 mmol/L (3.5-5.1)
[2023-06-01 08:00] VITALS: BP 127/97; TEMP 97.7; O2SAT 95
[2023-06-01] MEDS: MUPIROCIN OINT 2% 22 GM TUBE NS SCH (08:03)
[2023-06-01 16:00] VITALS: BP 128/100; TEMP 98; O2SAT 96
[2023-06-01 23:24] VITALS: BP 134/90; TEMP 98.8; O2SAT 95
[2023-06-02 05:05] VITALS: BP 106/75; TEMP 98.8; O2SAT 100
[2023-06-02 08:00] VITALS: BP 128/94; TEMP 97.4; O2SAT 100
[2023-06-02] MEDS ORDERED: hydrALAZINE HCL 25 MG TABLET GT PRN (09:47)
[2023-06-02 16:00] VITALS: BP 128/89; TEMP 97.4; O2SAT 97
[2023-06-02] MEDS: PANTOPRAZOLE 40 MG/PACK PACK GT SCH (16:32)
[2023-06-02 20:00] VITALS: BP 141/78; TEMP 98.4; O2SAT 99
[2023-06-03 04:00] VITALS: BP 134/110; TEMP 97.8; O2SAT 98
[2023-06-03 08:00] VITALS: BP 133/92; TEMP 97.9; O2SAT 98
[2023-06-03 16:00] VITALS: BP 118/92; TEMP 98.6; O2SAT 96
[2023-06-03 20:00] VITALS: BP 103/87; TEMP 97.7; O2SAT 96
[2023-06-04 04:00] VITALS: BP 111/85; TEMP 98.2; O2SAT 97
[2023-06-04 12:35] VITALS: BP 122/92; TEMP 97.9; O2SAT 98
[2023-06-04 20:00] VITALS: BP 139/93; TEMP 98.9; O2SAT 97
[2023-06-05 04:00] VITALS: BP 132/91; TEMP 98.8; O2SAT 97
[2023-06-05 08:00] VITALS: BP 131/94; TEMP 98.5; O2SAT 97
[2023-06-05 16:00] VITALS: BP 132/87; TEMP 98.9; O2SAT 96
[2023-06-05 20:00] VITALS: BP 131/101; TEMP 98.6; O2SAT 96
[2023-06-06 04:00] VITALS: BP 131/100; TEMP 98.6; O2SAT 96
[2023-06-07 09:00] VITALS: BP 133/90; TEMP 99.5; O2SAT 96
[2023-06-07 11:31] LABS: BASOPHILS % (AUTO) 0.3 % (0.0-2.0); EOSINOPHILS # (AUTO) 0.3 K/uL (0.0-0.7); EOSINOPHILS % (AUTO) 2.7 % (0.0-6.0); HEMATOCRIT 32 % (39-51); LYMPHOCYTES # (AUTO) 1.6 K/uL (0.8-4.8); LYMPHOCYTES % (AUTO) 15.5 % (20.0-44.0); MEAN CORPUSCULAR HEMOGLOBIN 25 PG (26.0-33.0); MEAN CORPUSCULAR HGB CONC 32 g/dl (31.0-36.0); MEAN CORPUSCULAR VOLUME 79 fL (80-96); MONOCYTES # (AUTO) 0.7 K/uL (0.1-1.30); MONOCYTES % (AUTO) 6.5 % (2.0-12.0); PLATELET COUNT (AUTO) 323 K/uL (150-450); RED CELL DISTRIBUTION WIDTH 20.3 % (11.5-15.0); WHITE BLOOD COUNT (AUTO) 10.6 K/uL (4.3-11.0)
[2023-06-07 11:46] LABS: CALCIUM, SERUM 8.2 mg/dL (8.5-10.1); CREATININE 0.8 mg/dL (0.6-1.3); POTASSIUM 4.1 mmol/L (3.5-5.1)
[2023-06-07 12:00] VITALS: BP 116/84; TEMP 97.8; O2SAT 96
[2023-06-07] MEDS: LIDOCAINE 1%-EPI 1:100,000 20 ML VIAL TP STA (13:52)
[2023-06-07] MEDS: SILVER NITRATE APPLICATOR 1 EA BOX TP STA (13:52)
[2023-06-07] MEDS: DAKINS QUARTER STRENGTH (0.125%) 480 ML BOTTLE TOP SCH (16:57)
[2023-06-07 20:00] VITALS: BP 128/95; TEMP 98.8; O2SAT 96
[2023-06-08 04:00] VITALS: BP 128/90; TEMP 98.2; O2SAT 96
[2023-06-08 07:17] LABS: BASOPHILS % (AUTO) 0.3 % (0.0-2.0); EOSINOPHILS # (AUTO) 0.2 K/uL (0.0-0.7); EOSINOPHILS % (AUTO) 1.4 % (0.0-6.0); HEMATOCRIT 33 % (39-51); HEMOGLOBIN 10.2 g/dL (13.5-17.5); LYMPHOCYTES # (AUTO) 2.4 K/uL (0.8-4.8); LYMPHOCYTES % (AUTO) 17.4 % (20.0-44.0); MEAN CORPUSCULAR HEMOGLOBIN 25 PG (26.0-33.0); MEAN CORPUSCULAR HGB CONC 31 g/dl (31.0-36.0); MEAN CORPUSCULAR VOLUME 79 fL (80-96); MONOCYTES # (AUTO) 0.9 K/uL (0.1-1.30); MONOCYTES % (AUTO) 6.1 % (2.0-12.0); NEUTROPHILS # (AUTO) 10.5 K/uL (1.8-8.9); NEUTROPHILS % (AUTO) 74.8 % (43.0-81.0); PLATELET COUNT (AUTO) 356 K/uL (150-450); RED BLOOD CELL COUNT(AUTO) 4.16 MIL/uL (4.5-6.0); RED CELL DISTRIBUTION WIDTH 20.2 % (11.5-15.0)
[2023-06-08 07:40] LABS: CALCIUM, SERUM 8.2 mg/dL (8.5-10.1); CREATININE 0.8 mg/dL (0.6-1.3); MAGNESIUM 1.8 mg/dL (1.8-2.4); PHOSPHORUS 3.4 mg/dL (2.5-4.9); POTASSIUM 3.8 mmol/L (3.5-5.1)
[2023-06-08 12:00] VITALS: BP 118/85; TEMP 98.4; O2SAT 96
[2023-06-08 20:00] VITALS: BP 129/91; TEMP 101.8
[2023-06-09 05:51] VITALS: BP 129/97; TEMP 98.8; O2SAT 98
[2023-06-09 08:00] VITALS: BP 119/96; TEMP 98.8; O2SAT 99
[2023-06-09 16:00] VITALS: BP 122/85; TEMP 98; O2SAT 100
[2023-06-09 20:00] VITALS: BP 142/63; TEMP 98.4; O2SAT 100
[2023-06-10 04:00] VITALS: BP 133/78; TEMP 98.7; O2SAT 97
[2023-06-10 08:00] VITALS: BP 131/69; TEMP 99; O2SAT 98
[2023-06-10 08:43] LABS: BASOPHILS % (AUTO) 0.2 % (0.0-2.0); EOSINOPHILS # (AUTO) 0.2 K/uL (0.0-0.7); EOSINOPHILS % (AUTO) 1.4 % (0.0-6.0); HEMATOCRIT 31 % (39-51); HEMOGLOBIN 9.6 g/dL (13.5-17.5); LYMPHOCYTES % (AUTO) 13.5 % (20.0-44.0); MEAN CORPUSCULAR HEMOGLOBIN 24 PG (26.0-33.0); MEAN CORPUSCULAR HGB CONC 31 g/dl (31.0-36.0); MEAN CORPUSCULAR VOLUME 78 fL (80-96); MONOCYTES # (AUTO) 0.9 K/uL (0.1-1.30); MONOCYTES % (AUTO) 5.8 % (2.0-12.0); NEUTROPHILS # (AUTO) 11.7 K/uL (1.8-8.9); NEUTROPHILS % (AUTO) 79.1 % (43.0-81.0); PLATELET COUNT (AUTO) 384 K/uL (150-450); RED BLOOD CELL COUNT(AUTO) 3.96 MIL/uL (4.5-6.0); RED CELL DISTRIBUTION WIDTH 20.2 % (11.5-15.0); WHITE BLOOD COUNT (AUTO) 14.9 K/uL (4.3-11.0)
[2023-06-10 09:14] LABS: CALCIUM, SERUM 8.8 mg/dL (8.5-10.1); CREATININE 0.8 mg/dL (0.6-1.3); MAGNESIUM 1.9 mg/dL (1.8-2.4); PHOSPHORUS 3.6 mg/dL (2.5-4.9); POTASSIUM 3.7 mmol/L (3.5-5.1)
[2023-06-10 16:00] VITALS: BP 121/63; TEMP 100.6; O2SAT 99
[2023-06-10 20:00] VITALS: BP 137/94; TEMP 99; O2SAT 99
[2023-06-10 20:55] LABS: HIV-1 p24 ANTIGEN NON REACTIVE (NONREACTIVE); HIV-1/2 ANTIBODY NON REACTIVE (NONREACTIVE)
[2023-06-11 04:00] VITALS: BP 138/93; TEMP 98.8; O2SAT 97
[2023-06-11 08:00] VITALS: BP 136/98; TEMP 98.6; O2SAT 96
[2023-06-11 09:02] LABS: BASOPHILS % (AUTO) 0.1 % (0.0-2.0); EOSINOPHILS # (AUTO) 0.1 K/uL (0.0-0.7); EOSINOPHILS % (AUTO) 0.8 % (0.0-6.0); HEMATOCRIT 34 % (39-51); HEMOGLOBIN 10.5 g/dL (13.5-17.5); LYMPHOCYTES # (AUTO) 2.1 K/uL (0.8-4.8); LYMPHOCYTES % (AUTO) 12.4 % (20.0-44.0); MEAN CORPUSCULAR HEMOGLOBIN 24 PG (26.0-33.0); MEAN CORPUSCULAR HGB CONC 31 g/dl (31.0-36.0); MEAN CORPUSCULAR VOLUME 78 fL (80-96); MONOCYTES # (AUTO) 1.1 K/uL (0.1-1.30); MONOCYTES % (AUTO) 6.3 % (2.0-12.0); NEUTROPHILS # (AUTO) 13.8 K/uL (1.8-8.9); NEUTROPHILS % (AUTO) 80.4 % (43.0-81.0); PLATELET COUNT (AUTO) 408 K/uL (150-450); RED BLOOD CELL COUNT(AUTO) 4.31 MIL/uL (4.5-6.0); RED CELL DISTRIBUTION WIDTH 20.4 % (11.5-15.0); WHITE BLOOD COUNT (AUTO) 17.2 K/uL (4.3-11.0)
[2023-06-11 09:20] LABS: CALCIUM, SERUM 8.3 mg/dL (8.5-10.1); CREATININE 0.8 mg/dL (0.6-1.3); MAGNESIUM 1.9 mg/dL (1.8-2.4); PHOSPHORUS 3.8 mg/dL (2.5-4.9)
[2023-06-11] MEDS: IV NS 0.9% 1,000 ML IV ONE (14:41)
[2023-06-11 16:00] VITALS: BP 133/94; TEMP 100.6; O2SAT 96
[2023-06-11] MEDS: IV LR 1000 ML 1,000 ML IV PRN (16:53)
[2023-06-11] MEDS: VANCOMYCIN HCL 1.25 GM in IV D5W 250 ML IV ONE (19:50)
[2023-06-11 20:30] VITALS: BP 132/93; TEMP 99.4; O2SAT 95
[2023-06-11] MEDS: CEFEPIME 2 GM in IV D5W 100 ML IV SCH (21:59)
[2023-06-12 04:00] VITALS: BP 133/91; TEMP 99.1; O2SAT 100
[2023-06-12] MEDS: VANCOMYCIN 1 GM in IV D5W 250 ML IV SCH (05:09)
[2023-06-12 08:00] VITALS: BP 127/84; TEMP 98.9; O2SAT 98
[2023-06-12 08:15] LABS: BASOPHILS % (AUTO) 0.1 % (0.0-2.0); EOSINOPHILS # (AUTO) 0.4 K/uL (0.0-0.7); EOSINOPHILS % (AUTO) 2.4 % (0.0-6.0); HEMATOCRIT 28 % (39-51); HEMOGLOBIN 8.6 g/dL (13.5-17.5); LYMPHOCYTES # (AUTO) 2.1 K/uL (0.8-4.8); LYMPHOCYTES % (AUTO) 11.5 % (20.0-44.0); MEAN CORPUSCULAR HEMOGLOBIN 24 PG (26.0-33.0); MEAN CORPUSCULAR HGB CONC 31 g/dl (31.0-36.0); MEAN CORPUSCULAR VOLUME 78 fL (80-96); MONOCYTES % (AUTO) 5.7 % (2.0-12.0); NEUTROPHILS # (AUTO) 14.5 K/uL (1.8-8.9); NEUTROPHILS % (AUTO) 80.3 % (43.0-81.0); PLATELET COUNT (AUTO) 377 K/uL (150-450); RED BLOOD CELL COUNT(AUTO) 3.57 MIL/uL (4.5-6.0); RED CELL DISTRIBUTION WIDTH 20.1 % (11.5-15.0); WHITE BLOOD COUNT (AUTO) 18.1 K/uL (4.3-11.0)
[2023-06-12 08:20] LABS: CALCIUM, SERUM 7.7 mg/dL (8.5-10.1); CREATININE 0.7 mg/dL (0.6-1.3); POTASSIUM 3.6 mmol/L (3.5-5.1)
[2023-06-12] MEDS: FLUCONAZOLE (100 MG) 100 MG TABLET PO SCH (08:23)
[2023-06-12 16:00] VITALS: BP 130/91; TEMP 99; O2SAT 99
[2023-06-12 20:00] VITALS: BP 122/82; TEMP 99.9; O2SAT 99
[2023-06-13 04:00] VITALS: BP 132/91; TEMP 98.4; O2SAT 98
[2023-06-13 06:51] LABS: BASOPHILS % (AUTO) 0.2 % (0.0-2.0); EOSINOPHILS # (AUTO) 0.3 K/uL (0.0-0.7); EOSINOPHILS % (AUTO) 1.9 % (0.0-6.0); HEMATOCRIT 29 % (39-51); HEMOGLOBIN 9.1 g/dL (13.5-17.5); LYMPHOCYTES # (AUTO) 1.3 K/uL (0.8-4.8); LYMPHOCYTES % (AUTO) 8.5 % (20.0-44.0); MEAN CORPUSCULAR HEMOGLOBIN 24 PG (26.0-33.0); MEAN CORPUSCULAR HGB CONC 32 g/dl (31.0-36.0); MEAN CORPUSCULAR VOLUME 77 fL (80-96); MONOCYTES # (AUTO) 0.9 K/uL (0.1-1.30); MONOCYTES % (AUTO) 5.6 % (2.0-12.0); NEUTROPHILS # (AUTO) 13.2 K/uL (1.8-8.9); NEUTROPHILS % (AUTO) 83.8 % (43.0-81.0); PLATELET COUNT (AUTO) 390 K/uL (150-450); RED BLOOD CELL COUNT(AUTO) 3.76 MIL/uL (4.5-6.0); RED CELL DISTRIBUTION WIDTH 19.9 % (11.5-15.0); WHITE BLOOD COUNT (AUTO) 15.7 K/uL (4.3-11.0)
[2023-06-13 07:04] LABS: CALCIUM, SERUM 7.6 mg/dL (8.5-10.1); CREATININE 0.7 mg/dL (0.6-1.3); MAGNESIUM 1.5 mg/dL (1.8-2.4); PHOSPHORUS 3.1 mg/dL (2.5-4.9); POTASSIUM 3.4 mmol/L (3.5-5.1)
[2023-06-13] MEDS ORDERED: LIDOCAINE 1%-EPI 1:100,000 20 ML VIAL TP ONE (07:30)
[2023-06-13] MEDS ORDERED: SILVER NITRATE APPLICATOR 1 EA BOX TP SCH (07:30)
[2023-06-13 08:00] VITALS: BP 149/99; TEMP 99.3; O2SAT 98
[2023-06-13] MEDS: POTASSIUM CL. PREMIX PERIPHER. 50 ML IV SCH (09:33)
[2023-06-13] MEDS: Magnesium 1GM/D5W 100ML PREMIX 100 ML IV SCH (09:33)
[2023-06-13 16:00] VITALS: BP 142/97; TEMP 98.4; O2SAT 98
[2023-06-13 19:21] LABS: APPEARANCE,URINE CLEAR (CLEAR); BILIRUBIN,URINE NEGATIVE (NEGATIVE); BLOOD, URINE TRACE-INTA Ery/uL (NEGATIVE); COLOR,URINE YELLOW (YELLOW); KETONES,URINE NEGATIVE (NEGATIVE); LEUKOCYTE ESTERASE ,URINE 1+ (NEGATIVE); NITRITE, URINE NEGATIVE (NEGATIVE); PROTEIN,URINE NEGATIVE (NEGATIVE); UGLUCOSE NEGATIVE (NEGATIVE); UROBILINOGEN,URINE 0.2 EU/dL (0.2)
[2023-06-13 20:00] VITALS: BP 126/91; TEMP 98; O2SAT 95
[2023-06-13 20:05] LABS: ADD URINE CULTURE YES; BACTERIA,URINE Few /HPF (None Seen); SQUAMOUS EPITHELIAL CELL,UR Few /HPF (None Seen)
[2023-06-14 04:00] VITALS: BP 126/91; TEMP 98; O2SAT 95
[2023-06-14 06:43] LABS: BASOPHILS % (AUTO) 0.1 % (0.0-2.0); EOSINOPHILS # (AUTO) 0.2 K/uL (0.0-0.7); EOSINOPHILS % (AUTO) 1.3 % (0.0-6.0); HEMATOCRIT 31 % (39-51); HEMOGLOBIN 9.8 g/dL (13.5-17.5); LYMPHOCYTES # (AUTO) 1.8 K/uL (0.8-4.8); LYMPHOCYTES % (AUTO) 9.5 % (20.0-44.0); MEAN CORPUSCULAR HEMOGLOBIN 24 PG (26.0-33.0); MEAN CORPUSCULAR HGB CONC 32 g/dl (31.0-36.0); MEAN CORPUSCULAR VOLUME 76 fL (80-96); MONOCYTES # (AUTO) 1.2 K/uL (0.1-1.30); NEUTROPHILS % (AUTO) 83.1 % (43.0-81.0); PLATELET COUNT (AUTO) 406 K/uL (150-450); RED BLOOD CELL COUNT(AUTO) 4.04 MIL/uL (4.5-6.0); RED CELL DISTRIBUTION WIDTH 20.2 % (11.5-15.0); WHITE BLOOD COUNT (AUTO) 19.3 K/uL (4.3-11.0)
[2023-06-14 07:01] LABS: CALCIUM, SERUM 7.6 mg/dL (8.5-10.1); CREATININE 0.7 mg/dL (0.6-1.3); POTASSIUM 3.3 mmol/L (3.5-5.1)
[2023-06-14 07:02] LABS: MAGNESIUM 1.9 mg/dL (1.8-2.4); PHOSPHORUS 2.8 mg/dL (2.5-4.9)
[2023-06-14 08:00] VITALS: BP 128/68; TEMP 98.2; O2SAT 100
[2023-06-14] MEDS: POTASSIUM CL. PREMIX PERIPHER. 50 ML IV SCH (11:25)
[2023-06-14 16:00] VITALS: BP 114/68; TEMP 98.2; O2SAT 97
[2023-06-14] MEDS ORDERED: IMIPENEM/CILASTATIN 500 MG in IV NS 0.9% 100 ML IV SCH (17:00)
[2023-06-14] MEDS: MEROPENEM 1 G in IV NS 0.9% 100 ML IV SCH (18:26)
[2023-06-14 20:00] VITALS: BP 150/90; TEMP 97.7; O2SAT 97
== END 2023-06-14 21:18 | DRG 853 ==
LOC: ER 05:14 → ICU 10:32 → TELE-TD 05-04 19:42 → TELE1 05-05 10:05 → MEDSG1 05-06 10:53
PROVIDERS: ADMIT Internal Medicine; ATTEND Nurse Practitioner Acute Care
PROC: 30233N1 Transfusion of Nonautologous Red Blood Cells into Peripheral Vein, Percutaneous Approach (ICD-10-PCS; 2023-05-02)
PROC: 0DH63UZ Insertion of Feeding Device into Stomach, Percutaneous Approach (ICD-10-PCS; principal; 2023-05-04)
PROC: 0DJD8ZZ Inspection of Lower Intestinal Tract, Via Natural or Artificial Opening Endoscopic (ICD-10-PCS; 2023-05-04)
PROC: 05HC33Z Insertion of Infusion Device into Left Basilic Vein, Percutaneous Approach (ICD-10-PCS; 2023-05-15)
PROC: B54NZZA Ultrasonography of Left Upper Extremity Veins, Guidance (ICD-10-PCS; 2023-05-15)
PROC: 0KBN0ZZ Excision of Right Hip Muscle, Open Approach (ICD-10-PCS; 2023-05-30)
PROC: 0KBP0ZZ Excision of Left Hip Muscle, Open Approach (ICD-10-PCS; 2023-05-30)
PROC: 0KBP0ZZ Excision of Left Hip Muscle, Open Approach (ICD-10-PCS; 2023-06-07)
PROC: 0KBN0ZZ Excision of Right Hip Muscle, Open Approach (ICD-10-PCS; 2023-06-07)
DX: A41.9 Sepsis, unspecified organism (principal); E43 Unspecified severe protein-calorie malnutrition; L89.154 Pressure ulcer of sacral region, stage 4; G93.41 Metabolic encephalopathy; R65.21 Severe sepsis with septic shock; K29.71 Gastritis, unspecified, with bleeding; D62 Acute posthemorrhagic anemia; B37.41 Candidal cystitis and urethritis; E87.1 Hypo-osmolality and hyponatremia; K62.1 Rectal polyp; K64.8 Other hemorrhoids; D50.9 Iron deficiency anemia, unspecified; D75.839 Thrombocytosis, unspecified; E78.5 Hyperlipidemia, unspecified; E86.1 Hypovolemia; E88.09 Other disorders of plasma-protein metabolism, not elsewhere classified; I25.10 Atherosclerotic heart disease of native coronary artery without angina pectoris; R13.10 Dysphagia, unspecified; Z88.0 Allergy status to penicillin; Z87.440 Personal history of urinary (tract) infections; I12.9 Hypertensive chronic kidney disease with stage 1 through stage 4 chronic kidney disease, or unspecified chronic kidney disease; N18.9 Chronic kidney disease, unspecified; Z68.31 Body mass index [BMI] 31.0-31.9, adult; D63.8 Anemia in other chronic diseases classified elsewhere; L89.156 Pressure-induced deep tissue damage of sacral region; L89.136 Pressure-induced deep tissue damage of right lower back; L89.146 Pressure-induced deep tissue damage of left lower back; L89.326 Pressure-induced deep tissue damage of left buttock; L89.316 Pressure-induced deep tissue damage of right buttock; E86.9 Volume depletion, unspecified; Z66 Do not resuscitate; Z79.4 Long term (current) use of insulin; Z86.73 Personal history of transient ischemic attack (TIA), and cerebral infarction without residual deficits; E11.65 Type 2 diabetes mellitus with hyperglycemia; K80.20 Calculus of gallbladder without cholecystitis without obstruction; E11.22 Type 2 diabetes mellitus with diabetic chronic kidney disease
CPT/HCPCS: 36410; 36415; 43760; 71045-TC; 80048-TC; 80053-TC; 80076-TC; 80202-TC; 81001; 82728-TC; 82962-TC; 83540-TC; 83605-TC; 83690-TC; 83735-TC; 83880; 83935-TC; 84100-TC; 84300-TC; 84443-TC; 84484-TC; 84550-TC; 85025-TC; 85027-TC; 85730-TC; 86803; 86850-TC; 87040-TC; 87081-TC; 87086-TC; 87806; 93307-TC; 94760-TC; 94761-TC; 94762-TC; 94799-TC; 97110-TC; 97112-TC; 97530-TC; A4217; A4223; A6253; A6403; C9113; G0378; J0692; J1815; J2185; J3370; J3475; J3480; J3490; J7030; J7040; J7050; J7060; J7070; J7120; P9016